=== PATIENT | male | born 1950 | race African-American/Black ===

== ENCOUNTER 2019-07-28 12:46 | Inpatient (IN) | payer MEDICARE ==
[2019-07-28] VITALS (30 sets, daily range): BP systolic 88–122; BP diastolic 51–83
[~2019-07-28] VITALS: Ht 182.9 cm; Wt 97.1 kg
--- NOTE | 2019-07-28 12:46 | NUR ---
Note undone in EDM - 07/28/19 at 1830 by [facility] ED Nurse Note: Patient brought in by ambulance RA 61 from PMD's office, Dr. Lehman. per patient, he was visiting his PMD due to his bronchitis. patient then c/o dizziness and weakness. 500ML NS bolus was given en route by EMS. patient is alert awake x4 ambulatory, breathing unlabored and even.
[2019-07-28] MEDS ORDERED: Adenosine 6mg/2ml Inj ONE (12:57)
[2019-07-28] MEDS ORDERED: Adenosine 6mg/2ml Inj IV ONE (13:00)
--- NOTE | 2019-07-28 13:05 | Emergency Room Report ---
History of Present Illness General Chief Complaint: Dizziness Source: Patient Present Illness HPI 69-year-old male history of hypertension, bronchitis presents with tachycardia, hypotension patient was at the urgent care when they found to be hypotensive and tachycardic, patient denies any chest pain shortness of breath no abdominal pain patient was asymptomatic unknown aggravating alleviating factors severity was severe, symptoms were constant Allergies: Coded Allergies: No Known Allergies (Unverified , 07/28/19) Patient History Past Medical History: see triage record Reviewed Nursing Documentation: PMH: Agreed; PSxH: Agreed Nursing Documentation-PMH Hx Hypertension: Yes Hx COPD: Yes Review of Systems All Other Systems: negative except mentioned in HPI Physical Exam Vital Signs Date Time Temp Pulse Resp B/P (MAP) Pulse Ox O2 Delivery O2 Flow Rate FiO2 07/28/19 12:36 98.2 120 18 87/60 (69) 98 Sp02 EP Interpretation: reviewed, normal General Appearance: well appearing, no apparent distress, alert Head: normocephalic, atraumatic Eyes: bilateral eye PERRL, bilateral eye EOMI ENT: uvula midline, moist mucus membranes Neck: supple, thyroid normal, supple/symm/no masses Respiratory: lungs clear, no respiratory distress, no retraction, no accessory muscle use Cardiovascular #1: normal peripheral pulses, no edema, no gallop, no murmur, tachycardia Gastrointestinal: non tender, soft, no guarding, no rebound Musculoskeletal: normal inspection Neurologic: alert, oriented x3 Psychiatric: mood/affect normal Skin: no rash, warm/dry Procedures Critical Care Time Critical Care Time Given the critical condition in which the patient arrived, the patient was immediately assessed by myself and the nurse, and cardiac monitoring initiated due to the potential for rapid decompensation of the patient's clinical condition. During the course of the patient's stay, I spent a considerable amount of time at the bedside performing serial re-evaluations of the patient's hemodynamic and clinical status because of the recognized potential threat to life or limb in this condition. I then had a chance to review not only all of the available current laboratory and radiographic studies obtained today, but I also reviewed old records available to me at the time. Additionally, any ancillary information available including tarring machine operator records were reviewed. Sequential vital signs were obtained. Critical Care time of 41 minutes was performed exclusive of billable procedures. Medical Decision Making Diagnostic Impression: Primary Impression: SVT (supraventricular tachycardia) Additional Impression: Hypotension Qualified Codes: I95.89 - Other hypotension ER Course 69-year-old male presents with SVT hypotensive, Attempted cardioversion with vagal maneuvers Attempted cardioversion with 6 mg of adenosine 1301 patient then went back into SVT, retried with 12 mg of adenosine Blood pressure improved with fluid bolus Patient remained tachycardic to the 130s, diltiazem bolus We will start diltiazem drip and admit patient to the ICU Reevaluation 2:29 PM, patient is now normal sinus rhythm EKG 1 1254: SVT, rate 159, QTc 44, no acute ST elevations, left axis deviation EKG 2 1301 venous rhythm, rate 94, QTc 1 7, no acute ST elevations, left axis dev EKG 3 at 1306: Sinus tachycardia, rate 102, EKG 4 at 1424 NSR rate 76 qtc [address] elevations, left axis dev Patient admitted to Dr. Lehman Laboratory Tests Test 07/28/19 12:59 White Blood Count 6.4 K/UL (4.8-10.8) Red Blood Count 3.16 M/UL (4.70-6.10) L Hemoglobin 10.8 G/DL (14.2-18.0) L Hematocrit 34.4 % (42.0-52.0) L Mean Corpuscular Volume 109 FL (80-99) H Mean Corpuscular Hemoglobin 34.3 PG (27.0-31.0) H Mean Corpuscular Hemoglobin Concent 31.5 G/DL (32.0-36.0) L Red Cell Distribution Width 16.6 % (11.6-14.8) H Platelet Count 57 K/UL (150-450) L Mean Platelet Volume 9.5 FL (6.5-10.1) Neutrophils (%) (Auto) % (45.0-75.0) Lymphocytes (%) (Auto) % (20.0-45.0) Monocytes (%) (Auto) % (1.0-10.0) Eosinophils (%) (Auto) % (0.0-3.0) Basophils (%) (Auto) % (0.0-2.0) Differential Total Cells Counted 100 Neutrophils % (Manual) 32 % (45-75) L Lymphocytes % (Manual) 30 % (20-45) Monocytes % (Manual) 34 % (1-10) H Eosinophils % (Manual) 2 % (0-3) Basophils % (Manual) 2 % (0-2) Band Neutrophils 0 % (0-8) Platelet Estimate Decreased L Platelet Morphology Normal Hypochromasia 1+ Anisocytosis 1+ Macrocytosis 1+ Prothrombin Time 12.9 SEC (9.30-11.50) H Prothrombin Time INR 1.2 (0.9-1.1) H PTT 27 SEC (23-33) Sodium Level 141 MMOL/L (136-145) Potassium Level 4.2 MMOL/L (3.5-5.1) Chloride Level 108 MMOL/L (98-107) H Carbon Dioxide Level 23 MMOL/L (21-32) Anion Gap 10 mmol/L (5-15) Blood Urea Nitrogen 23 mg/dL (7-18) H Creatinine 1.7 MG/DL (0.55-1.30) H Estimate Glomerular Filtration Rate mL/min (>60) Glucose Level 107 MG/DL (74-106) H Calcium Level 8.9 MG/DL (8.5-10.1) Total Bilirubin Pending Aspartate Amino Transferase (AST) Pending Alanine Aminotransferase (ALT) Pending Alkaline Phosphatase Pending Total Creatine Kinase Pending Creatine Kinase MB Pending Troponin I 0.000 ng/mL (0.000-0.056) Pro-B-Type Natriuretic Peptide Pending Total Protein Pending Albumin Pending Globulin Pending Lipase Pending Thyroid Stimulating Hormone (TSH) Pending Free Thyroxine Pending Free Triiodothyronine Pending EKG Diagnostic Results EKG Time: 12:54 EP Interpretation: SVT, rate 159, QTc 44, no acute ST elevations, left axis deviation Rhythm Strip Diag. Results Rhythm Strip Time: 13:31 EP Interpretation: yes Rate: 129 Rhythm: no PVC's, no ectopy, other - SVT, rate 129 Chest X-Ray Diagnostic Results Chest X-Ray Diagnostic Results : Chest X-Ray Ordered: Yes # of Views/Limited/Complete: 1 View Indication: Other EP Interpretation: Yes - Processespreop Interpretation: no consolidation, no effusion, no pneumothorax, no acute cardiopulmonary disease Impression: No acute disease Electronically Signed by: Kentrell Mast MD Last Vital Signs Date Time Temp Pulse Resp B/P (MAP) Pulse Ox O2 Delivery O2 Flow Rate FiO2 9/4/19 12:36 98.2 120 18 87/60 (91) 08 Disposition: ADMITTED INPATIENT Condition: Serious Kentrell Mast MD Jul 28, 2019 13:05
[2019-07-28] MEDS ORDERED: Adenosine 6mg/2ml Inj IVP ONE (13:15)
[2019-07-28] MEDS ORDERED: dilTIAZem HCl 25mg/5ml Inj IVP ONE (13:15)
[2019-07-28] MEDS ORDERED: dilTIAZem HCl 125mg/25ml Inj IVPB ONE (13:19)
--- NOTE | 2019-07-28 13:35 | NUR ---
ED Nurse Note: cxr done at bedside,
[2019-07-28 13:51] LABS: HEMATOCRIT 34.4 % (42.0-52.0); HEMOGLOBIN 10.8 G/DL (14.2-18.0); MEAN CORPUSCULAR VOLUME 109 FL (80-99); PLATELET COUNT 57 K/UL (150-450); RED BLOOD COUNT 3.16 M/UL (4.70-6.10); RED CELL DISTRIBUTION WIDTH 16.6 % (11.6-14.8); WHITE BLOOD COUNT 6.4 K/UL (4.8-10.8)
[2019-07-28 14:00] LABS: ANION GAP 10 mmol/L (5-15); BLOOD UREA NITROGEN 23 mg/dL (7-18); CALCIUM 8.9 MG/DL (8.5-10.1); CARBON DIOXIDE 23 MMOL/L (21-32); CHLORIDE 108 MMOL/L (98-107); CREATININE 1.7 MG/DL (0.55-1.30); POTASSIUM 4.2 MMOL/L (3.5-5.1); SODIUM 141 MMOL/L (136-145)
[2019-07-28 14:05] LABS: INR 1.2 (0.9-1.1)
[2019-07-28 14:28] LABS: ALANINE AMINOTRANSFERASE 16 U/L (12-78); ALBUMIN 2.9 G/DL (3.4-5.0); ALBUMIN/GLOBULIN RATIO 0.5 (1.0-2.7); ALKALINE PHOSPHATASE 36 U/L (46-116); ASPARTATE AMINO TRANSFERASE 9 U/L (15-37); BILIRUBIN,TOTAL 0.6 MG/DL (0.2-1.0); CKMB < 0.5 NG/ML (0.0-3.6); CREATINE KINASE 23 U/L (26-308)
--- NOTE | 2019-07-28 14:35 | NUR ---
ED Nurse Note: cardizem drip decreased to 5mg as patient's BP is 88/60, notified Dr. Mast, Dr. Mast gave verbal order to titrate down 5mg and monitor.
[2019-07-28 14:41] LABS: APPEARANCE,URINE CLEAR; BILIRUBIN, URINE NEGATIVE (NEGATIVE); GLUCOSE, URINE (UA) NEGATIVE (NEGATIVE); KETONES,URINE NEGATIVE (NEGATIVE); LEUKOCYTE ESTERASE ,URINE 1+ (NEGATIVE); NITRITE,URINE NEGATIVE (NEGATIVE); PH,URINE 5 (4.5-8.0); PROTEIN,URINE 3+ (NEGATIVE); UROBILINOGEN,URINE NORMAL MG/DL (0.0-1.0)
--- NOTE | 2019-07-28 14:43 | Diagnostic Imaging Report ---
Indication: Chest pain Technique: One view of the chest Comparison: None Findings: The heart is enlarged. Lungs and pleural spaces are clear. The aorta is ectatic Impression: Cardiomegaly. No acute process
[2019-07-28 14:55] LABS: COLOR,URINE YELLOW
--- NOTE | 2019-07-28 15:02 | NUR ---
ED Nurse Note: Danisha cellphone [phone]
--- NOTE | 2019-07-28 16:17 | NUR ---
ED Nurse Note: called ICU and spoke with Smita GREENWOOD, the receiving nurse is not available in ICU yet, will call back.
--- NOTE | 2019-07-28 16:30 | NUR ---
Note ivett in EDM - 07/28/19 at 1830 by [facility] ED Nurse Note: report given to Smita GREENWOOD, Endorsed all plan of care to Smita GREENWOOD. Juany new the receiving nurse is on break at this time.
--- NOTE | 2019-07-28 17:10 | NUR ---
ED Nurse Note: Patient trasferred to ICU with all of his belonings, patient on felt hat pouncing operator hand accompanied with [employer] and RN. Endorsed all plan of care to Juany Beyer RN.
--- NOTE | 2019-07-28 17:15 | NUR ---
NURSE NOTES: Received the patient KRYSTYNA Ortiz. Patient is awake, alert and orientedx4. patient ambulated to bed. Patient on room air. O2 sat 100%. No acute distress noted. Placed pt on lock corner machine operator, SR 60-70s noted on the lock corner machine operator. Right AC 18G intact, cardizem gtt running at 15ml/hr. Decreased to 12.5ml/hr. BP 109/72. All belongings checked. Bed in lowest position, locked, side rails upx3. Call light within reach. Will continue to monitor.
[2019-07-28] MEDS ORDERED: HYDROCHLOROTHIA50 MG ORAL (17:26)
[2019-07-28] MEDS ORDERED: CARVEDILOL12.5 MG ORAL (17:26)
[2019-07-28] MEDS ORDERED: LOSARTAN POTASS50 MG ORAL (17:26)
--- NOTE | 2019-07-28 17:30 | NUR ---
NURSE NOTES: Called Dr. Lehman and left a message regarding admitting order. Addendum: 07/28/19 at 1811 by RYAN DANIELLE RN Also left a message to Dr. Gill, awaiting for call back.
--- NOTE | 2019-07-28 18:15 | NUR ---
NURSE NOTES: Paged Dr. Lehman again for admitting orders.
--- NOTE | 2019-07-28 18:30 | NUR ---
ED Nurse Note: report given to Smita DELGADO Endorsed all plan of care to Smita DELGADO
--- NOTE | 2019-07-28 18:40 | NUR ---
NURSE NOTES: Admitting order received from Dr. Lehman.
[2019-07-28] MEDS ORDERED: guaiFENesin 100mg/5ml Liq ud ORAL PRN (18:45)
--- NOTE | 2019-07-28 18:55 | NUR ---
NURSE NOTES: Dr. Gill made aware of pt's HR 60-80s, Cardizem gtt running at 2.5mg/hr. Per MD, keep cardizem drip at 5mg/hr. 2D echo can be done tomorrow morning per MD.
--- NOTE | 2019-07-28 19:00 | NUR ---
NURSE NOTES: SCDs applied to bilateral lower extremities. No s/sx of DVT
--- NOTE | 2019-07-28 19:17 | NUR ---
HAND-OFF: Report given to KRYSTYNA Ordoñez.
--- NOTE | 2019-07-28 19:20 | NUR ---
NURSE NOTES: Recvd.quiet in bed AAO watching TV,Admitted with Symptomatic SVT Cardizem drip in progress started in ED after 10mg IV bolus.Previously received 2 doses of ADENOSINE 6mg rapid ivp.Cardioscope shows SR,Denies CP.See V/S.
--- NOTE | 2019-07-28 22:00 | NUR ---
NURSE NOTES: HS care provided.Denies any chest discomfort.Snack provided as req.ate 100%.Monitor shows SR.Cont.on cardizem drip as ordered.
[2019-07-28] MEDS: Albuterol/Ipratropium 3ml neb HHN SCH (23:31)
[2019-07-29] VITALS (35 sets, daily range): BP systolic 93–161; BP diastolic 45–86
--- NOTE | 2019-07-29 00:10 | NUR ---
NURSE NOTES: Sound asleep.Resp.unlabored.Sat.99-100% on RA.See V/S.Scope SR.Cont.on cardizem drip at 5mg/hr.
--- NOTE | 2019-07-29 01:45 | History and Physical Report ---
DATE OF ADMISSION: 07/28/2019 HISTORY OF PRESENT ILLNESS: The patient is a 69-year-old male who came to the office for regular visit where he was found to have severe tachycardia, was found to have SVT. The patient's blood pressure was also low as 90s . The patient was given more p.o. fluids. Called 911 and transferred to the emergency room where his heart rate was running about 160s and SVT. The patient was having feeling generalized weakness. No headache. No nausea. No vomiting. No abdominal pain. PAST MEDICAL HISTORY: Significant for hypertension. MEDICATIONS: See the list. ALLERGIES: NKA. FAMILY HISTORY: Noncontributory. SOCIAL HISTORY: Lives at home with . Denies any smoking and drinking. Denies any illegal drugs. The patient used to be veterans. PHYSICAL EXAMINATION: VITAL SIGNS: Blood pressure is currently 111/60, pulse 90 to 126, respirations 18 to 24, temperature no fever. SKIN: Good skin turgor. HEENT: Positive JVD. CHEST: Bilateral decreased breath sounds. CARDIOVASCULAR: Irregularly irregular rhythm. Tachycardia. ABDOMEN: Soft. Positive bowel sounds. Nontender. EXTREMITIES: CCE. NEUROLOGICAL: No focal deficit. LABORATORY AND DIAGNOSTIC DATA: 1. EKG with RVR with SVT. 2. BNP over 3000. 3. Troponins are negative. ASSESSMENT: 1. SVT. 2. CHF. 3. Acute bronchitis. 4. Hypertension. 5. Obesity. PLAN: We will admit in ICU on 2 gram sodium diet. Heparin drip per pharmacy protocol. Start Cardizem drip. Consider Cardiology consult, Lasix 20 mg IV q.12 hours, 2 gram sodium diet. Follow up the laboratory and discussed with who was on bedside during that time. Kiel Lehman M.D. DR: Seymour JOB#: [id number] CC:
--- NOTE | 2019-07-29 02:15 | NUR ---
NURSE NOTES: Repositioned self to comfort.Denies CP.Voided Freely.No Distress.Cont.Plan of care.
--- NOTE | 2019-07-29 04:30 | NUR ---
NURSE NOTES: Slept well.No Resp.Distress.No Chest pain nor discomfort.Scope SR.Cardizem drip inf. at 5mg/hr.Blood drawn for Bmp/Bnp etc.spec.to lab.Voided.
[2019-07-29 05:43] LABS: ANION GAP 11 mmol/L (5-15); BLOOD UREA NITROGEN 20 mg/dL (7-18); CALCIUM 8.6 MG/DL (8.5-10.1); CARBON DIOXIDE 21 MMOL/L (21-32); CHLORIDE 109 MMOL/L (98-107); CREATININE 1.3 MG/DL (0.55-1.30); POTASSIUM 4.2 MMOL/L (3.5-5.1); SODIUM 141 MMOL/L (136-145)
[2019-07-29] MEDS: Albuterol/Ipratropium 3ml neb HHN SCH ×3 (07:05→22:42)
--- NOTE | 2019-07-29 07:11 | NUR ---
HAND-OFF: Report given to KRYSTYNA ANTOINE.
--- NOTE | 2019-07-29 07:25 | NUR ---
NURSE NOTES: Endorsement received from KRYSTYNA Ocampo. Patient currently awake, A/Ox4, pupils 3mm brisk. Lung sounds rales bilateral on expiration. on R.A sating 100%. productive cough noted. per pt clear in color. abdomen distended, soft, non tender. per pt last BM 06/27, no c/o of constipation. no bm at this time. normoactive bowel sounds noted. urinal at bedside. clear yellow. Cardizem drip running at 30mg/hr. RT AC 18G. intact and patent. skin intact. pt able to reposition self, needs assistance with some care aspects. Head of bed elevated. Locked and in low position. Call light within reach. Bed alarm on. fall precautions in place. will continue to monitor pt.
--- NOTE | 2019-07-29 08:40 | NUR ---
NURSE NOTES: HERE TO DO 2D ECHO. PT IN NO CUTE DISTRESS.
--- NOTE | 2019-07-29 08:56 | NUR ---
NURSE NOTES: RECEIVED CALL FROM MD BELL. UPDATED ON PT HR 81.AND BP 121-74. 99 % ON R.A. RECEIVED ORDER TO D/C SUHAIL MONTES, START ON METOPROLOL 25MG BID, PLAN FOR D/C ONCE MD MENG ASSESS PT. WILL BE IN LATER TO SEE PT.
[2019-07-29 09:19] LABS: HEMOGLOBIN 9.8 G/DL (14.2-18.0); MEAN CORPUSCULAR VOLUME 109 FL (80-99); PLATELET COUNT 52 K/UL (150-450); RED BLOOD COUNT 2.85 M/UL (4.70-6.10); RED CELL DISTRIBUTION WIDTH 16.2 % (11.6-14.8)
--- NOTE | 2019-07-29 09:56 | Consultation ---
History of Present Illness General Chief Complaint: Dizziness Present Illness Allergies: Coded Allergies: No Known Allergies (Unverified , 07/28/19) Medication History Scheduled Carvedilol* (Carvedilol*), 12.5 MG ORAL EVERY 12 HOURS, (Reported) Hydrochlorothiazide* (Hydrochlorothiazide*), 50 MG ORAL BID, (Reported) Losartan Potassium* (Losartan Potassium*), 50 MG ORAL DAILY, (Reported) Patient History Healthcare decision maker N Resuscitation status Advanced Directive on File Physical Exam Last 24 Hour Vital Signs Date Time Temp Pulse Resp B/P (MAP) Pulse Ox O2 Delivery O2 Flow Rate FiO2 07/29/19 08:00 Room Air 07/29/19 08:00 81 07/29/19 07:30 79 19 125/73 (90) 98 07/29/19 07:15 69 16 100 Room Air 21 74 19 98 07/29/19 07:05 98 Room Air 21 07/29/19 07:00 74 19 104/71 (82) 99 07/29/19 06:30 71 19 116/72 (87) 99 07/29/19 06:00 65 17 99/47 (64) 99 07/29/19 05:30 64 19 97/45 (62) 99 07/29/19 05:00 66 19 93/55 (68) 97 07/29/19 04:30 70 17 114/72 (86) 98 07/29/19 04:00 71 07/29/19 04:00 Room Air 07/29/19 04:00 98.1 71 15 114/69 (84) 99 07/29/19 03:30 68 19 101/66 (78) 100 07/29/19 03:00 70 19 115/72 (86) 99 07/29/19 02:30 68 18 127/59 (81) 99 07/29/19 02:00 68 18 112/68 (83) 98 07/29/19 01:30 70 17 114/71 (85) 99 07/29/19 01:00 69 20 114/69 (84) 99 07/29/19 00:30 68 17 108/72 (84) 99 07/29/19 00:00 67 07/29/19 00:00 Room Air 07/29/19 00:00 98.2 67 17 103/59 (74) 99 07/28/19 23:30 64 18 100 Room Air 21 67 16 100 07/28/19 23:30 67 18 101/64 (76) 100 07/28/19 23:00 64 18 94/57 (69) 100 07/28/19 22:30 63 19 94/52 (66) 98 07/28/19 22:00 63 22 97/51 (66) 98 07/28/19 21:30 67 22 90/53 (65) 99 07/28/19 21:00 68 20 102/64 (77) 99 07/28/19 20:30 99 Room Air 21 07/28/19 20:30 71 18 95/61 (72) 100 07/28/19 20:01 73 106/66 07/28/19 20:00 73 07/28/19 20:00 97.8 73 17 101/62 (75) 100 07/28/19 20:00 Room Air 07/28/19 19:00 67 17 122/72 (89) 99 07/28/19 18:45 67 18 113/69 (84) 100 07/28/19 18:30 70 18 111/69 (83) 100 07/28/19 18:15 68 18 100/69 (79) 100 07/28/19 18:00 67 18 107/70 (82) 98 07/28/19 17:45 71 18 106/70 (82) 100 07/28/19 17:33 Room Air 07/28/19 17:30 98.3 70 18 109/72 (84) 100 07/28/19 17:01 98.2 123 19 106/77 100 Room Air 07/28/19 17:00 98.2 123 19 107/72 100 Room Air 07/28/19 16:45 98.2 125 19 106/77 99 Room Air 07/28/19 16:30 98.2 127 16 107/71 99 Room Air 07/28/19 16:15 98.2 127 16 108/75 99 Room Air 07/28/19 16:00 98.2 126 20 101/62 100 Room Air 07/28/19 15:35 98.2 75 19 94/64 100 Room Air 07/28/19 15:08 98.2 70 23 91/61 100 Room Air 07/28/19 14:53 98.2 75 15 94/62 100 Room Air 07/28/19 14:38 98.2 73 16 92/60 100 Room Air 07/28/19 14:35 98.2 73 15 88/60 100 Room Air 07/28/19 14:09 98.2 75 16 108/83 100 Room Air 07/28/19 13:54 98.2 128 18 98/70 99 Room Air 07/28/19 13:39 98.2 130 18 112/77 98 Room Air 07/28/19 13:24 98.2 127 15 101/69 100 Room Air 07/28/19 13:24 125 101/69 07/28/19 13:15 161 112/69 07/28/19 13:14 161 07/28/19 13:10 161 18 Room Air 07/28/19 13:08 98.2 164 21 112/69 100 07/28/19 13:05 161 07/28/19 12:36 98.2 120 18 87/60 (69) 98 Intake and Output 07/28/19 07/29/19 18:59 06:59 Intake Total 8.750 ml 401.875 ml Output Total 500 ml Balance 8.750 ml -98.125 ml Intake Oral 0 ml 350 ml IV Total 8.750 ml 51.875 ml Tube Feeding 0 ml Output Urine Total 500 ml # Voids 2 Laboratory Tests Test 07/28/19 12:59 07/28/19 13:56 07/29/19 03:40 White Blood Count 6.4 K/UL (4.8-10.8) 6.0 K/UL (4.8-10.8) Red Blood Count 3.16 M/UL (4.70-6.10) L 2.85 M/UL (4.70-6.10) L Hemoglobin 10.8 G/DL (14.2-18.0) L 9.8 G/DL (14.2-18.0) L Hematocrit 34.4 % (42.0-52.0) L 31.0 % (42.0-52.0) L Mean Corpuscular Volume 109 FL (80-99) H 109 FL (80-99) H Mean Corpuscular Hemoglobin 34.3 PG (27.0-31.0) H 34.3 PG (27.0-31.0) H Mean Corpuscular Hemoglobin Concent 31.5 G/DL (32.0-36.0) L 31.5 G/DL (32.0-36.0) L Red Cell Distribution Width 16.6 % (11.6-14.8) H 16.2 % (11.6-14.8) H Platelet Count 57 K/UL (150-450) L 52 K/UL (150-450) L Mean Platelet Volume 9.5 FL (6.5-10.1) 10.2 FL (6.5-10.1) H Neutrophils (%) (Auto) % (45.0-75.0) % (45.0-75.0) Lymphocytes (%) (Auto) % (20.0-45.0) % (20.0-45.0) Monocytes (%) (Auto) % (1.0-10.0) % (1.0-10.0) Eosinophils (%) (Auto) % (0.0-3.0) % (0.0-3.0) Basophils (%) (Auto) % (0.0-2.0) % (0.0-2.0) Differential Total Cells Counted 100 Neutrophils % (Manual) 32 % (45-75) L Pending Lymphocytes % (Manual) 30 % (20-45) Pending Monocytes % (Manual) 34 % (1-10) H Eosinophils % (Manual) 2 % (0-3) Basophils % (Manual) 2 % (0-2) Band Neutrophils 0 % (0-8) Platelet Estimate Decreased L Pending Platelet Morphology Normal Pending Hypochromasia 1+ Anisocytosis 1+ Macrocytosis 1+ Prothrombin Time 12.9 SEC (9.30-11.50) H Prothromb Time International Ratio 1.2 (0.9-1.1) H Activated Partial Thromboplast Time 27 SEC (23-33) Sodium Level 141 MMOL/L (136-145) 141 MMOL/L (136-145) Potassium Level 4.2 MMOL/L (3.5-5.1) 4.2 MMOL/L (3.5-5.1) Chloride Level 108 MMOL/L (98-107) H 109 MMOL/L (98-107) H Carbon Dioxide Level 23 MMOL/L (21-32) 21 MMOL/L (21-32) Anion Gap 10 mmol/L (5-15) 11 mmol/L (5-15) Blood Urea Nitrogen 23 mg/dL (7-18) H 20 mg/dL (7-18) H Creatinine 1.7 MG/DL (0.55-1.30) H 1.3 MG/DL (0.55-1.30) Estimat Glomerular Filtration Rate mL/min (>60) mL/min (>60) Glucose Level 107 MG/DL (74-106) H 89 MG/DL (74-106) Calcium Level 8.9 MG/DL (8.5-10.1) 8.6 MG/DL (8.5-10.1) Magnesium Level 1.8 MG/DL (1.8-2.4) Total Bilirubin 0.6 MG/DL (0.2-1.0) Aspartate Amino Transf (AST/SGOT) 9 U/L (15-37) L Alanine Aminotransferase (ALT/SGPT) 16 U/L (12-78) Alkaline Phosphatase 36 U/L (46-116) L Total Creatine Kinase 23 U/L (26-308) L Creatine Kinase MB < 0.5 NG/ML (0.0-3.6) Creatine Kinase MB Relative Index Troponin I 0.000 ng/mL (0.000-0.056) 0.000 ng/mL (0.000-0.056) Pro-B-Type Natriuretic Peptide 3520 pg/mL (0-125) H 1309 pg/mL (0-125) H Total Protein 8.5 G/DL (6.4-8.2) H Albumin 2.9 G/DL (3.4-5.0) L Globulin 5.6 g/dL Albumin/Globulin Ratio 0.5 (1.0-2.7) L Lipase 88 U/L (73-393) Thyroid Stimulating Hormone (TSH) 0.758 uiU/mL (0.358-3.740) Free Thyroxine 1.10 NG/DL (0.76-1.46) Free Triiodothyronine 1.8 pg/mL (2.3-4.2) L Urine Color Yellow Urine Appearance Clear Urine pH 5 (4.5-8.0) Urine Specific [place] 1.015 (1.005-1.035) Urine Protein 3+ (NEGATIVE) H Urine Glucose (UA) Negative (NEGATIVE) Urine Ketones Negative (NEGATIVE) Urine Blood 1+ (NEGATIVE) H Urine Nitrite Negative (NEGATIVE) Urine Bilirubin Negative (NEGATIVE) Urine Urobilinogen Normal MG/DL (0.0-1.0) Urine Leukocyte Esterase 1+ (NEGATIVE) H Urine RBC 2-4 /HPF (0 - 0) H Urine WBC 2-4 /HPF (0 - 0) Urine Squamous Epithelial Cells None /LPF (NONE/OCC) Urine Bacteria Few /HPF (NONE) Urine Opiates Screen Negative (NEGATIVE) Urine Barbiturates Screen Negative (NEGATIVE) Phencyclidine (PCP) Screen Negative (NEGATIVE) Urine Amphetamines Screen Negative (NEGATIVE) Urine Benzodiazepines Screen Negative (NEGATIVE) Urine Cocaine Screen Negative (NEGATIVE) Urine Marijuana (THC) Screen Negative (NEGATIVE) Height (Feet): 6 Height (Inches): 0.00 Weight (Pounds): 214 Medications Current Medications Medications (Trade) Dose Ordered Sig/Shahrzad Route PRN Reason Start Time Stop Time Status Last Admin Dose Admin Albuterol/ Ipratropium (Albuterol/ Ipratropium) 3 ml Q8HRT HHN 07/28/19 23:00 08/02/19 22:59 07/29/19 07:05 Aspirin (ASA) 81 mg DAILY ORAL 07/30/19 09:00 08/29/19 08:59 Dextrose (Dextrose 50%) 25 ml Q30M PRN IV Hypoglycemia 07/28/19 18:45 08/27/19 18:44 Dextrose (Dextrose 50%) 50 ml Q30M PRN IV Hypoglycemia 07/28/19 18:45 08/27/19 18:44 Digoxin (Lanoxin) 0.25 mg DAILY ORAL 07/30/19 09:00 08/29/19 08:59 Furosemide (Lasix) 20 mg DAILY IV 07/29/19 09:00 08/28/19 08:59 07/29/19 08:06 Guaifenesin (Robitussin) 100 mg Q8H PRN ORAL For Cough 07/28/19 18:45 08/27/19 18:44 Metoprolol Tartrate (Lopressor) 25 mg BID ORAL 07/29/19 10:00 08/28/19 09:59 Assessment/Plan Assessment/Plan: Hematology Consultation REQ : Kiel Lehman RFC: Thrombocytopenia, chronic, ongoing Chief Complaint: Dizziness HPI 69-year-old male history of hypertension, bronchitis presents with tachycardia, hypotension patient was at the urgent care when they found to be hypotensive and tachycardic, patient denies any chest pain shortness of breath no abdominal pain patient was asymptomatic unknown aggravating alleviating factors severity was severe, symptoms were constant, noted to have low plts heme was consulted, is on cardizem gtt, seen by cards Allergies: No Known Allergies (Unverified , 07/28/19) Patient History Past Medical History: see triage record Reviewed Nursing Documentation: PMH: Agreed; PSxH: Agreed Nursing Documentation-PMH Hx Hypertension: Yes Hx COPD: Yes Review of Systems All Other Systems: negative except mentioned in HPI Vital Signs reviewed General: well appearing, no apparent distress, alert Chest: lungs clear, no respiratory distress, no retraction Cardiovascular #1: normal peripheral pulses, rrr Gastrointestinal: non tender, soft, nt, nd Neurologic: alert, oriented x3 Psychiatric: mood/affect normal Labs: noted Imaging: reviewed Assessment and Recs: # Idiopathic Thrombocytopenic Pupura (ITP) - potential causes multifactorial, evaluate liver and viral etiologies to begin, also could be related to underlying medications patient has received. Have reviewed with him history, apparently had a bone marrow done [facility] the [facility] approximately 6 months ago, will attempt to get records, was told does not need any treatment at this time, ok for asa --> Hep panel and HIV ordered --> Peripheral smear ordered to evaluate for blasts /schistocytes --> abx and other meds have been reviewed --> ok for ppx if plt >50k w/ either heparin or lovenox --> Transfuse if Plt < 20k and fever, or if Plt < 10k without fever --> plt trend 57-->52 --> get bone marrow biopsy report from [facility] --> okay for asa as per cards. At this time, equivocal on other anticoagulants such as eliquis/noac given chronically low plts (would monitor carefully in a must use scenario) # Anemia of chronic disease (or of iron deficiency) due to underlying chronic medical issues, multifactorial --> Anemia workup has been ordered, rule out gi bleed --> No evidence of hemolysis is noted, peripheral smear has been reviewed. --> Hgb goal >7. Transfuse prn. --> Epogen or iron at this time is not particularly indicated --> Medications have been reviewed --> low threshold for gi evaluation in case has occult + --> bone marrow biopsy is not indicated given the other more likely causes # SVT (supraventricular tachycardia), initially given dilt, adeno --> per cards management on cardizem # Hypotension on ivf # DVT ppx at this time hold off given low plts The timing of this note does not necessarily reflect the time of the patient was seen. Greatly appreciate consultation. Darrell Hooker MD Jul 29, 2019 09:56
--- NOTE | 2019-07-29 10:00 | NUR ---
NURSE NOTES: MD MENG HERE TO SEE PT. OK WITH D/C DRIP AND METOPROL 25MG BID, AND PT TRANSFER. NO ASA. PLACED CALL TO SUKHI FOR TO COMMUNICATE NEED FOR TRANSFER TO [facility] FOR PROCEDURE.
[2019-07-29] MEDS: Metoprolol 25mg tab ORAL SCH ×2 (10:08→18:27)
--- NOTE | 2019-07-29 10:15 | Cardiac Electrophysiology PN ---
Subjective Subjective [id number] Objective Last 24 Hour Vital Signs Date Time Temp Pulse Resp B/P (MAP) Pulse Ox O2 Delivery O2 Flow Rate FiO2 07/29/19 08:00 Room Air 07/29/19 08:00 81 07/29/19 07:30 79 19 125/73 (90) 98 07/29/19 07:15 69 16 100 Room Air 21 74 19 98 07/29/19 07:05 98 Room Air 21 07/29/19 07:00 74 19 104/71 (82) 99 07/29/19 06:30 71 19 116/72 (87) 99 07/29/19 06:00 65 17 99/47 (64) 99 07/29/19 05:30 64 19 97/45 (62) 99 07/29/19 05:00 66 19 93/55 (68) 97 07/29/19 04:30 70 17 114/72 (86) 98 07/29/19 04:00 71 07/29/19 04:00 Room Air 07/29/19 04:00 98.1 71 15 114/69 (84) 99 07/29/19 03:30 68 19 101/66 (78) 100 07/29/19 03:00 70 19 115/72 (86) 99 07/29/19 02:30 68 18 127/59 (81) 99 07/29/19 02:00 68 18 112/68 (83) 98 07/29/19 01:30 70 17 114/71 (85) 99 07/29/19 01:00 69 20 114/69 (84) 99 07/29/19 00:30 68 17 108/72 (84) 99 07/29/19 00:00 67 07/29/19 00:00 Room Air 07/29/19 00:00 98.2 67 17 103/59 (74) 99 07/28/19 23:30 64 18 100 Room Air 21 67 16 100 07/28/19 23:30 67 18 101/64 (76) 100 07/28/19 23:00 64 18 94/57 (69) 100 07/28/19 22:30 63 19 94/52 (66) 98 07/28/19 22:00 63 22 97/51 (66) 98 07/28/19 21:30 67 22 90/53 (65) 99 07/28/19 21:00 68 20 102/64 (77) 99 07/28/19 20:30 99 Room Air 21 07/28/19 20:30 71 18 95/61 (72) 100 07/28/19 20:01 73 106/66 07/28/19 20:00 73 07/28/19 20:00 97.8 73 17 101/62 (75) 100 07/28/19 20:00 Room Air 07/28/19 19:00 67 17 122/72 (89) 99 07/28/19 18:45 67 18 113/69 (84) 100 07/28/19 18:30 70 18 111/69 (83) 100 07/28/19 18:15 68 18 100/69 (79) 100 07/28/19 18:00 67 18 107/70 (82) 98 07/28/19 17:45 71 18 106/70 (82) 100 07/28/19 17:33 Room Air 07/28/19 17:30 98.3 70 18 109/72 (84) 100 07/28/19 17:01 98.2 123 19 106/77 100 Room Air 07/28/19 17:00 98.2 123 19 107/72 100 Room Air 07/28/19 16:45 98.2 125 19 106/77 99 Room Air 07/28/19 16:30 98.2 127 16 107/71 99 Room Air 07/28/19 16:15 98.2 127 16 108/75 99 Room Air 07/28/19 16:00 98.2 126 20 101/62 100 Room Air 07/28/19 15:35 98.2 75 19 94/64 100 Room Air 07/28/19 15:08 98.2 70 23 91/61 100 Room Air 07/28/19 14:53 98.2 75 15 94/62 100 Room Air 07/28/19 14:38 98.2 73 16 92/60 100 Room Air 07/28/19 14:35 98.2 73 15 88/60 100 Room Air 07/28/19 14:09 98.2 75 16 108/83 100 Room Air 07/28/19 13:54 98.2 128 18 98/70 99 Room Air 07/28/19 13:39 98.2 130 18 112/77 98 Room Air 07/28/19 13:24 98.2 127 15 101/69 100 Room Air 07/28/19 13:24 125 101/69 07/28/19 13:15 161 112/69 07/28/19 13:14 161 07/28/19 13:10 161 18 Room Air 07/28/19 13:08 98.2 164 21 112/69 100 07/28/19 13:05 161 07/28/19 12:36 98.2 120 18 87/60 (69) 98 Intake and Output 07/28/19 07/29/19 18:59 06:59 Intake Total 8.750 ml 401.875 ml Output Total 500 ml Balance 8.750 ml -98.125 ml Intake Oral 0 ml 350 ml IV Total 8.750 ml 51.875 ml Tube Feeding 0 ml Output Urine Total 500 ml # Voids 2 Laboratory Tests Test 07/28/19 12:59 07/28/19 13:56 07/29/19 03:40 White Blood Count 6.4 K/UL (4.8-10.8) 6.0 K/UL (4.8-10.8) Red Blood Count 3.16 M/UL (4.70-6.10) L 2.85 M/UL (4.70-6.10) L Hemoglobin 10.8 G/DL (14.2-18.0) L 9.8 G/DL (14.2-18.0) L Hematocrit 34.4 % (42.0-52.0) L 31.0 % (42.0-52.0) L Mean Corpuscular Volume 109 FL (80-99) H 109 FL (80-99) H Mean Corpuscular Hemoglobin 34.3 PG (27.0-31.0) H 34.3 PG (27.0-31.0) H Mean Corpuscular Hemoglobin Concent 31.5 G/DL (32.0-36.0) L 31.5 G/DL (32.0-36.0) L Red Cell Distribution Width 16.6 % (11.6-14.8) H 16.2 % (11.6-14.8) H Platelet Count 57 K/UL (150-450) L 52 K/UL (150-450) L Mean Platelet Volume 9.5 FL (6.5-10.1) 10.2 FL (6.5-10.1) H Neutrophils (%) (Auto) % (45.0-75.0) % (45.0-75.0) Lymphocytes (%) (Auto) % (20.0-45.0) % (20.0-45.0) Monocytes (%) (Auto) % (1.0-10.0) % (1.0-10.0) Eosinophils (%) (Auto) % (0.0-3.0) % (0.0-3.0) Basophils (%) (Auto) % (0.0-2.0) % (0.0-2.0) Differential Total Cells Counted 100 Neutrophils % (Manual) 32 % (45-75) L Pending Lymphocytes % (Manual) 30 % (20-45) Pending Monocytes % (Manual) 34 % (1-10) H Eosinophils % (Manual) 2 % (0-3) Basophils % (Manual) 2 % (0-2) Band Neutrophils 0 % (0-8) Platelet Estimate Decreased L Pending Platelet Morphology Normal Pending Hypochromasia 1+ Anisocytosis 1+ Macrocytosis 1+ Prothrombin Time 12.9 SEC (9.30-11.50) H Prothromb Time International Ratio 1.2 (0.9-1.1) H Activated Partial Thromboplast Time 27 SEC (23-33) Sodium Level 141 MMOL/L (136-145) 141 MMOL/L (136-145) Potassium Level 4.2 MMOL/L (3.5-5.1) 4.2 MMOL/L (3.5-5.1) Chloride Level 108 MMOL/L (98-107) H 109 MMOL/L (98-107) H Carbon Dioxide Level 23 MMOL/L (21-32) 21 MMOL/L (21-32) Anion Gap 10 mmol/L (5-15) 11 mmol/L (5-15) Blood Urea Nitrogen 23 mg/dL (7-18) H 20 mg/dL (7-18) H Creatinine 1.7 MG/DL (0.55-1.30) H 1.3 MG/DL (0.55-1.30) Estimat Glomerular Filtration Rate mL/min (>60) mL/min (>60) Glucose Level 107 MG/DL (74-106) H 89 MG/DL (74-106) Calcium Level 8.9 MG/DL (8.5-10.1) 8.6 MG/DL (8.5-10.1) Magnesium Level 1.8 MG/DL (1.8-2.4) Total Bilirubin 0.6 MG/DL (0.2-1.0) Aspartate Amino Transf (AST/SGOT) 9 U/L (15-37) L Alanine Aminotransferase (ALT/SGPT) 16 U/L (12-78) Alkaline Phosphatase 36 U/L (46-116) L Total Creatine Kinase 23 U/L (26-308) L Creatine Kinase MB < 0.5 NG/ML (0.0-3.6) Creatine Kinase MB Relative Index Troponin I 0.000 ng/mL (0.000-0.056) 0.000 ng/mL (0.000-0.056) Pro-B-Type Natriuretic Peptide 3520 pg/mL (0-125) H 1309 pg/mL (0-125) H Total Protein 8.5 G/DL (6.4-8.2) H Albumin 2.9 G/DL (3.4-5.0) L Globulin 5.6 g/dL Albumin/Globulin Ratio 0.5 (1.0-2.7) L Lipase 88 U/L (73-393) Thyroid Stimulating Hormone (TSH) 0.758 uiU/mL (0.358-3.740) Free Thyroxine 1.10 NG/DL (0.76-1.46) Free Triiodothyronine 1.8 pg/mL (2.3-4.2) L Urine Color Yellow Urine Appearance Clear Urine pH 5 (4.5-8.0) Urine Specific [place] 1.015 (1.005-1.035) Urine Protein 3+ (NEGATIVE) H Urine Glucose (UA) Negative (NEGATIVE) Urine Ketones Negative (NEGATIVE) Urine Blood 1+ (NEGATIVE) H Urine Nitrite Negative (NEGATIVE) Urine Bilirubin Negative (NEGATIVE) Urine Urobilinogen Normal MG/DL (0.0-1.0) Urine Leukocyte Esterase 1+ (NEGATIVE) H Urine RBC 2-4 /HPF (0 - 0) H Urine WBC 2-4 /HPF (0 - 0) Urine Squamous Epithelial Cells None /LPF (NONE/OCC) Urine Bacteria Few /HPF (NONE) Urine Opiates Screen Negative (NEGATIVE) Urine Barbiturates Screen Negative (NEGATIVE) Phencyclidine (PCP) Screen Negative (NEGATIVE) Urine Amphetamines Screen Negative (NEGATIVE) Urine Benzodiazepines Screen Negative (NEGATIVE) Urine Cocaine Screen Negative (NEGATIVE) Urine Marijuana (THC) Screen Negative (NEGATIVE) Teofilo Gill MD Jul 29, 2019 10:15
--- NOTE | 2019-07-29 10:27 | NUR ---
NURSE NOTES: Spoke with Mike from transfer center at [facility], requested facesheet faxed to [phone]. office # [phone] if any other questions. C.N aware.
--- NOTE | 2019-07-29 11:55 | NUR ---
NURSE NOTES: called ed case manager regarding discharge to [facility] for ablation. will look into chart and call when things are in order.
--- NOTE | 2019-07-29 12:00 | NUR ---
NURSE NOTES: Danisha at bedside. Given update on situation. Pt in no acute distress.
--- NOTE | 2019-07-29 12:10 | NUR ---
NURSE NOTES: Patient currently awake, eaten 100% of lunch. A/Ox4. Lung sounds rales bilateral on expiration. on R.A sating 100%. abdomen soft, non tender. no bm at this time. normoactive bowel sounds noted. urinal at bedside. clear yellow urine. Cardizem drip d/c. RT AC 18G S.L. skin intact. pt able to reposition self. Head of bed elevated. Locked and in low position. Call light within reach. Bed alarm on. fall precautions in place. will continue to monitor pt.
[2019-07-29 12:47] LABS: FERRITIN 620 NG/ML (8-388); LACTATE DEHYDROGENASE 101 U/L (81-234)
[2019-07-29 12:57] LABS: % IRON SATURATION 21 % (15-50); IRON 35 ug/dL (50-175); TOTAL IRON BINDING CAPACITY 170 ug/dL (250-450)
--- NOTE | 2019-07-29 13:58 | NUR ---
NURSE NOTES: offered to provide hygiene clean up for pt. pt's denied but wants to clean pt up herself. was given clean linen and hygiene products. assisted with getting warm wash up water and removing tubing and leads to take off gown, placed back on engine monitor and cautioned not to get electrodes wet. pt in no distress at this time.
--- NOTE | 2019-07-29 15:30 | Progress Note ---
DATE: 07/29/2019 PROGRESS NOTE IN ICU SUBJECTIVE: This is an elderly male, who came yesterday for SVT with heart rate like 160s to 170s. The patient was symptomatic, has feeling generalized weakness and cough for last few days. The patient denies any chest pain at that time but feeling generalized weakness, was also found hypotension. The patient was admitted in ICU for further evaluation, started on Cardizem drip and beta-daina this morning. PHYSICAL EXAMINATION: VITAL SIGNS: The patient's heart rate now is much better in 80s to 90s, blood pressure is 130s. SKIN: Good skin turgor. HEENT: AT/NC. EOMI. PERRLA. Pharynx clear. Trachea midline. NECK: Supple. No supraclavicular lymphadenopathy. CHEST: Bilateral few crackles. CARDIOVASCULAR: Regular rhythm. No gallop. No murmur. ABDOMEN: Soft. Positive bowel sounds. Nontender. EXTREMITIES: CCE NEUROLOGICAL: No focal deficit. GENITOURINARY: Deferred. LABORATORY AND DIAGNOSTIC DATA: BNP is about now is down. Sodium and potassium is normal, but platelets are low about 60. ASSESSMENT AND PLAN: 1. SVT, resolved now with metoprolol. The patient is not a candidate for anticoagulation because thrombocytopenia. 2. CHF. Continue Lasix. Order 2D echo and continue metoprolol and consider Cardiology consult, also add digoxin at this point and monitor heart rate. Cardiology, Hematology/Oncology consult for thrombocytopenia. They are on case. Discussed with Dr. Hooker. Discharge plans per clearance by Cardiology and discussed with Dr. Hooker. Kiel Lehman M.D. DR: Seymour JOB#: [id number] CC:
--- NOTE | 2019-07-29 16:20 | NUR ---
NURSE NOTES: Patient currently awake, ate 100% of dinner. A/Ox4. pt productive cough, clear. on R.A sating 100%. abdomen soft, non tender. no bm at this time. urinal at bedside. clear yellow urine.RT AC 18G S.L, 15ml flush to KVO. skin intact. pt able to reposition self. Head of bed elevated. Locked and in low position. Call light within reach. Bed alarm on. fall precautions in place. will continue to monitor pt.
--- NOTE | 2019-07-29 17:00 | Consultation ---
DATE OF CONSULTATION: 07/29/2019 CARDIOLOGY CONSULTATION CONSULTING PHYSICIAN: Teofilo Gill M.D. REASON FOR CONSULTATION: Recurrent supraventricular tachycardia. HISTORY OF PRESENT ILLNESS: The patient is a 69-year-old gentleman with history of hypertension, bronchitis, history of recurrent palpitation, SVT presented to an urgent care with tachycardia. The patient was also found to be hypotensive. Denied any chest pain or shortness of breath. The patient was evaluated in the emergency room and was found to be in supraventricular tachycardia at rate of 160 beats per minute EKG on 07/28/2019 at 12:54. The patient received attempted cardioversion vagal maneuvers failed; however, 6 mg of adenosine converted back to sinus rhythm. However, the patient went back to SVT and 12 mg of adenosine was given. The patient converted. The patient was then started on Cardizem drip and transferred to intensive care unit. Subsequently, the patient converted to sinus rhythm and remained in sinus rhythm on Cardizem drip. At the time of my evaluation, the patient denies any chest pain or shortness of breath. REVIEW OF SYSTEMS: Negative other than what was mentioned in history of present illness. PAST MEDICAL HISTORY: As mentioned above. FAMILY HISTORY: Noncontributory. SOCIAL HISTORY: He lives at home. Does not smoke or drink alcohol. PHYSICAL EXAMINATION: VITAL SIGNS: Show blood pressure of 117/70, pulse is 70, respirations 18, and he is afebrile. HEAD AND NECK: Showed no JVD or carotid bruits. LUNGS: Clear. CARDIOVASCULAR: Regular S1 and S2. No gallop or murmur. ABDOMEN: Soft. EXTREMITIES: No pitting edema. 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 EKG on 07/28/2019 at 13:01 showed sinus rhythm with PACs. No evidence of pre-excitation. LABORATORY AND DIAGNOSTIC DATA: Her labs show white count of 6, hemoglobin 9.8, hematocrit 31, and platelet count was only 52. Sodium 141, potassium 4.2, BUN of 20, creatinine 1.3. Troponin negative x2. Urine toxicology is negative. INR is 1.2. ASSESSMENT AND PLAN: 1. Recurrent palpitation and documented SVT of adenosine 6 and 12 mg. However, the patient recurred. I will discontinue Cardizem drip. Continue the patient on metoprolol 25 mg b.i.d. and digoxin 0.25 mg daily. We will try to transfer the patient to [facility] to proceed with electrophysiology study and ablation of this arrhythmia that he has had for many years, but never had an attempted ablation or electrophysiology study done. 2. Elevated BNP of 1300. His echocardiogram showed ejection fraction of 60% and moderate MR and moderate AI and some diastolic dysfunction. 3. Mild anemia as well as thrombocytopenia. Etiology is not clear at this time. At this time, I will discontinue aspirin. Thank you very much, Dr. Lehman, for allowing me to participate in the care of this patient. Please do not hesitate to contact me for any questions regarding my evaluation. It is of note that for the patient's hypertension, the patient was on Coreg 12.5 mg b.i.d. and losartan 50 mg daily as well as hydrochlorothiazide at home. Case was discussed with Dr. Lehman. Teofilo Gill M.D. DR: JOSE JOB#: [id number] CC:
--- NOTE | 2019-07-29 17:10 | NUR ---
CASE MANAGEMENT: INITIAL REVIEW 69 YO M SANDOVAL FROM HOME CC: DIZZINESS PMHx: COPD. HTN. SI:SVT. HYPOTENSION. T 98.2 HR 120 RR 18 B/P 87/60 SATS 98% ON RA CL 108 BUN 23 CR 1.7 GLU 107 AST 9 ALP 36 TOTAL CK 23 BNP 3520 IS: NS BOLUS X1 ADENOSINE IVP X2 CARDIZEM IV X2 PATIENT ADMITTED TO ICU 07/28/2019 @ 1330 DCP: PATIENT TO BE DISCHARGED TO HOME ONCE MEDICALLY CLEARED. PLAN OF CARE: CARDIO EVAL Addendum: 07/29/19 at 1719 by Sasha Rubin CM INTERQUAL
--- NOTE | 2019-07-29 18:17 | NUR ---
NURSE NOTES: pt requested to use restroom. refused use of bedpan. willing to use BSC with assistance. provided pt with privacy, educated on use of call, to get get assistance to get up. monitoring pt closely. bp slight elevation at 151/67
--- NOTE | 2019-07-29 18:35 | NUR ---
NURSE NOTES: pt back to bed. 1 large bm, soft, brown using BSC. BP 145/86, HR 89, RR 14, Sating 99%. No c/o pain.
--- NOTE | 2019-07-29 19:17 | NUR ---
HAND-OFF: Report given to Lexi GREENWOOD. pt resting in no acute distress. endorsed 205 transfer.
--- NOTE | 2019-07-29 19:30 | NUR ---
NURSE NOTES: Received report from Pavel RN. Patient in bed awake,alert oriented x4. able to verbalize needs to staff. Denies any pain or discomfort. skin warm and dry to touch. No SOB, oxygen saturation room air 100%. no s/s of acute distress noted. IV line intact on Right arm. Instructed patient to use call light for assistance. urinal and bedside commode at bedside. bed alarm on. bed locked and in low position. HR 89 on diagnostic cardiac sonographer. Will continue plan of care.
--- NOTE | 2019-07-29 21:30 | NUR ---
NURSE NOTES: Patient in bed watching TV. No s/s of acute distress noted. Frequent visual checks continued. patient with transfer order to Telemetry waiting to be transfer.
--- NOTE | 2019-07-29 23:30 | NUR ---
NURSE NOTES: Patient in bed sleeping comfortably. no s/s of acute distress noted. HR 92. call light within easy reach.
[2019-07-30] VITALS (22 sets, daily range): BP systolic 97–148; BP diastolic 49–99
--- NOTE | 2019-07-30 01:30 | NUR ---
NURSE NOTES: Patient in bed sleeping comfortably. no moaning no facial grimaces. No s/s of acute distress noted. Frequent visual checks continued. Call light within easy reach.
--- NOTE | 2019-07-30 02:45 | NUR ---
NURSE NOTES: Sasha hunt [facility] called and updated regarding the patient condition. No bed available at this time. charge nurse and patient aware. Patient will bed transfer to Telemetry around 6am.
--- NOTE | 2019-07-30 04:22 | NUR ---
NURSE NOTES: Patient awake,alert able to use urinal. Refused am care explained the importance v/s risk and benefits per patient he can do that later. No complain of pain or discomfort. Call light within easy reach.
--- NOTE | 2019-07-30 06:28 | NUR ---
TRANSFER TO FLOOR: Patient transferred to Telemetry 220-1, per Dr. Lehman. Report given to Alem GREENWOOD. Belongings and medications given to Alem GREENWOOD. Family and or S/O informed of transfer. Left message to Danisha.
--- NOTE | 2019-07-30 06:45 | NUR ---
NURSE NOTES: RECEIVED PATIENT FROM ICU. PATIENT ALERT AND ORIENTED X4, NO COMPLAINTS OF CHEST PAIN. BELONGINGS CHECKED WITH COMMERCIAL DRAFTER. MADE PATIENT COMFORTABLE AND ORIENTED TO ENVIRONMENT. FALL PRECAUTIONS IN PLACE: CALL LIGHT, BEDSIDE TABLE AND URINAL WITHIN REACH, BED IN LOW POSITION PLAN OF CARE REVIEWED.
[2019-07-30] MEDS ORDERED: Albuterol/Ipratropium 3ml neb HHN SCH (07:00)
--- NOTE | 2019-07-30 07:39 | NUR ---
NURSE NOTES: Received patient from KRYSTYNA Ferrara. Patient is AAO x4. Patient denies pain or chest palpitations. Patient is on floor worker well service. Fall precautions in place. Fall precaution in place. Call light at bedside. Bedside table and urinal within reach, bed in lowest position. Will continue with plan of care.
--- NOTE | 2019-07-30 07:39 | NUR ---
HAND-OFF: Report given to Trini GURROLA RN. PATIENT HAVING BREAKFAST, NO SIGNS OF DISTRESS NOTED.
[2019-07-30] MEDS ORDERED: Aspirin Baby 81mg ORAL SCH (09:00)
[2019-07-30] MEDS ORDERED: Metoprolol 25mg tab ORAL SCH (09:00)
--- NOTE | 2019-07-30 10:18 | Hematology/Onc Progress Note ---
Assessment/Plan Assessment/Plan Assessment and Recs: # Idiopathic Thrombocytopenic Pupura (ITP) - potential causes multifactorial, evaluate liver and viral etiologies to begin, also could be related to underlying medications patient has received. Have reviewed with him history, apparently had a bone marrow done at the [place] approximately 6 months ago, will attempt to get records, was told does not need any treatment at this time, ok for asa --> Hep panel and HIV ordered --> Peripheral smear ordered to evaluate for blasts /schistocytes --> abx and other meds have been reviewed --> ok for ppx if plt >50k w/ either heparin or lovenox --> Transfuse if Plt < 20k and fever, or if Plt < 10k without fever --> plt trend 57-->52 --> get bone marrow biopsy report from [place] --> okay for asa as per cards. At this time, equivocal on other anticoagulants such as eliquis/noac given chronically low plts (would monitor carefully in a must use scenario) --> would be ok for ablation # Anemia of chronic disease (or of iron deficiency) due to underlying chronic medical issues, multifactorial --> Anemia workup has been ordered, rule out gi bleed --> No evidence of hemolysis is noted, peripheral smear has been reviewed. --> Hgb goal >7. Transfuse prn. --> Epogen or iron at this time is not particularly indicated --> Medications have been reviewed --> low threshold for gi evaluation in case has occult + --> bone marrow biopsy is not indicated given the other more likely causes # SVT (supraventricular tachycardia), initially given dilt, adeno --> per cards management on cardizem, may need ablation # Hypotension on ivf # DVT ppx at this time hold off given low plts The timing of this note does not necessarily reflect the time of the patient was seen. Greatly appreciate consultation. Subjective Allergies: Coded Allergies: No Known Allergies (Unverified , 07/28/19) Subjective 07/30: no pain, no complaints, no discomfort, no acute events, a+ox4, labs reviewed Objective Objective Current Medications Medications (Trade) Dose Ordered Sig/Shahrzad Route PRN Reason Start Time Stop Time Status Last Admin Dose Admin Albuterol/ Ipratropium (Albuterol/ Ipratropium) 3 ml Q8HRT HHN 07/30/19 07:00 08/02/19 22:59 07/30/19 07:53 Dextrose (Dextrose 50%) 25 ml Q30M PRN IV Hypoglycemia 07/30/19 06:45 08/27/19 18:44 Dextrose (Dextrose 50%) 50 ml Q30M PRN IV Hypoglycemia 07/30/19 06:45 08/27/19 18:44 Digoxin (Lanoxin) 0.25 mg DAILY ORAL 07/30/19 09:00 08/29/19 08:59 07/30/19 08:17 Furosemide (Lasix) 20 mg DAILY IV 07/30/19 09:00 08/28/19 08:59 07/30/19 08:17 Guaifenesin (Robitussin) 100 mg Q8H PRN ORAL For Cough 07/30/19 10:45 08/27/19 18:44 Metoprolol Tartrate (Lopressor) 25 mg BID ORAL 07/30/19 09:00 08/28/19 09:59 07/30/19 08:16 Last 24 Hour Vital Signs Date Time Temp Pulse Resp B/P (MAP) Pulse Ox O2 Delivery O2 Flow Rate FiO2 07/30/19 08:17 109 07/30/19 08:16 109 148/99 07/30/19 08:00 98.1 109 18 148/99 (115) 97 07/30/19 07:49 85 20 100 Room Air 21 83 20 97 07/30/19 07:48 97 Room Air 21 07/30/19 06:30 99.7 91 18 144/94 (111) 97 07/30/19 06:00 89 17 140/84 (102) 99 07/30/19 05:00 89 17 140/84 (102) 98 07/30/19 04:00 89 07/30/19 04:00 98.2 88 14 135/80 (98) 99 07/30/19 04:00 Room Air 07/30/19 03:00 89 21 125/80 (95) 97 07/30/19 02:00 86 21 133/77 (95) 97 07/30/19 01:00 86 21 130/71 (90) 97 07/30/19 00:00 85 07/30/19 00:00 98.5 89 21 125/76 (92) 100 07/30/19 00:00 Room Air 07/29/19 23:00 86 21 137/80 (99) 100 07/29/19 22:42 91 17 100 Room Air 21 93 16 97 07/29/19 22:00 86 21 130/79 (96) 100 07/29/19 21:00 85 21 152/82 (105) 100 07/29/19 20:00 Room Air 07/29/19 20:00 98.7 93 17 130/78 (95) 100 07/29/19 20:00 86 07/29/19 19:16 93 17 130/78 (95) 100 07/29/19 19:13 97 Room Air 21 07/29/19 19:00 93 17 130/78 (95) 100 07/29/19 18:27 92 145/86 07/29/19 18:00 89 17 145/86 (105) 99 07/29/19 17:00 85 21 141/82 (101) 100 07/29/19 16:00 82 07/29/19 16:00 Room Air 07/29/19 16:00 98.8 87 18 140/85 (103) 99 07/29/19 15:00 84 18 126/81 (96) 100 07/29/19 14:54 83 21 100 Room Air 21 88 22 98 07/29/19 14:00 76 19 135/79 (97) 99 07/29/19 13:00 76 19 135/79 (97) 99 07/29/19 12:00 75 07/29/19 12:00 98.6 76 15 135/70 (91) 100 07/29/19 12:00 Room Air 07/29/19 11:00 76 19 135/79 (97) 99 07/29/19 10:08 77 117/70 07/29/19 10:00 78 20 123/70 (87) 99 07/29/19 09:30 79 20 117/70 (86) 99 07/29/19 09:00 78 18 115/70 (85) 100 07/29/19 08:30 84 20 121/74 (90) 100 07/29/19 08:00 98.3 77 17 161/83 (109) 99 07/29/19 08:00 Room Air 07/29/19 08:00 81 07/29/19 07:30 79 19 125/73 (90) 98 07/29/19 07:15 69 16 100 Room Air 21 74 19 98 07/29/19 07:05 98 Room Air 21 07/29/19 07:00 74 19 104/71 (82) 99 07/29/19 06:30 71 19 116/72 (87) 99 07/29/19 06:00 65 17 99/47 (64) 99 07/29/19 05:30 64 19 97/45 (62) 99 07/29/19 05:00 66 19 93/55 (68) 97 07/29/19 04:30 70 17 114/72 (86) 98 07/29/19 04:00 71 07/29/19 04:00 Room Air 07/29/19 04:00 98.1 71 15 114/69 (84) 99 07/29/19 03:30 68 19 101/66 (78) 100 07/29/19 03:00 70 19 115/72 (86) 99 07/29/19 02:30 68 18 127/59 (81) 99 07/29/19 02:00 68 18 112/68 (83) 98 07/29/19 01:30 70 17 114/71 (85) 99 07/29/19 01:00 69 20 114/69 (84) 99 07/29/19 00:30 68 17 108/72 (84) 99 07/29/19 00:00 67 07/29/19 00:00 Room Air 07/29/19 00:00 98.2 67 17 103/59 (74) 99 07/28/19 23:30 64 18 100 Room Air 21 67 16 100 07/28/19 23:30 67 18 101/64 (76) 100 07/28/19 23:00 64 18 94/57 (69) 100 07/28/19 22:30 63 19 94/52 (66) 98 07/28/19 22:00 63 22 97/51 (66) 98 07/28/19 21:30 67 22 90/53 (65) 99 07/28/19 21:00 68 20 102/64 (77) 99 07/28/19 20:30 99 Room Air 21 07/28/19 20:30 71 18 95/61 (72) 100 07/28/19 20:01 73 106/66 07/28/19 20:00 73 07/28/19 20:00 97.8 73 17 101/62 (75) 100 07/28/19 20:00 Room Air 07/28/19 19:00 67 17 122/72 (89) 99 07/28/19 18:45 67 18 113/69 (84) 100 07/28/19 18:30 70 18 111/69 (83) 100 07/28/19 18:15 68 18 100/69 (79) 100 07/28/19 18:00 67 18 107/70 (82) 98 07/28/19 17:45 71 18 106/70 (82) 100 07/28/19 17:33 Room Air 07/28/19 17:30 98.3 70 18 109/72 (84) 100 07/28/19 17:01 98.2 123 19 106/77 100 Room Air 07/28/19 17:00 98.2 123 19 107/72 100 Room Air 07/28/19 16:45 98.2 125 19 106/77 99 Room Air 07/28/19 16:30 98.2 127 16 107/71 99 Room Air 07/28/19 16:15 98.2 127 16 108/75 99 Room Air 07/28/19 16:00 98.2 126 20 101/62 100 Room Air 07/28/19 15:35 98.2 75 19 94/64 100 Room Air 07/28/19 15:08 98.2 70 23 91/61 100 Room Air 07/28/19 14:53 98.2 75 15 94/62 100 Room Air 07/28/19 14:38 98.2 73 16 92/60 100 Room Air 07/28/19 14:35 98.2 73 15 88/60 100 Room Air 07/28/19 14:09 98.2 75 16 108/83 100 Room Air 07/28/19 13:54 98.2 128 18 98/70 99 Room Air 07/28/19 13:39 98.2 130 18 112/77 98 Room Air 07/28/19 13:24 98.2 127 15 101/69 100 Room Air 07/28/19 13:24 125 101/69 07/28/19 13:15 161 112/69 07/28/19 13:14 161 07/28/19 13:10 161 18 Room Air 07/28/19 13:08 98.2 164 21 112/69 100 07/28/19 13:05 161 07/28/19 12:36 98.2 120 18 87/60 (69) 98 Intake and Output 07/29/19 07/30/19 19:00 07:00 Intake Total 780.0 ml 100 ml Output Total 1475 ml 800 ml Balance -695.0 ml -700 ml Intake Oral 770 ml 100 ml IV Total 10.0 ml Output Urine Total 1475 ml 800 ml # Voids 1 # Bowel Movements 1 Labs Test 07/28/19 12:59 07/28/19 13:56 07/29/19 03:40 07/29/19 10:30 White Blood Count 6.4 K/UL (4.8-10.8) 6.0 K/UL (4.8-10.8) Red Blood Count 3.16 M/UL (4.70-6.10) 2.85 M/UL (4.70-6.10) Hemoglobin 10.8 G/DL (14.2-18.0) 9.8 G/DL (14.2-18.0) Hematocrit 34.4 % (42.0-52.0) 31.0 % (42.0-52.0) Mean Corpuscular Volume 109 FL (80-99) 109 FL (80-99) Mean Corpuscular Hemoglobin 34.3 PG (27.0-31.0) 34.3 PG (27.0-31.0) Mean Corpuscular Hemoglobin Concent 31.5 G/DL (32.0-36.0) 31.5 G/DL (32.0-36.0) Red Cell Distribution Width 16.6 % (11.6-14.8) 16.2 % (11.6-14.8) Platelet Count 57 K/UL (150-450) 52 K/UL (150-450) Mean Platelet Volume 9.5 FL (6.5-10.1) 10.2 FL (6.5-10.1) Neutrophils (%) (Auto) % (45.0-75.0) % (45.0-75.0) Lymphocytes (%) (Auto) % (20.0-45.0) % (20.0-45.0) Monocytes (%) (Auto) % (1.0-10.0) % (1.0-10.0) Eosinophils (%) (Auto) % (0.0-3.0) % (0.0-3.0) Basophils (%) (Auto) % (0.0-2.0) % (0.0-2.0) Differential Total Cells Counted 100 100 Neutrophils % (Manual) 32 % (45-75) 35 % (45-75) Lymphocytes % (Manual) 30 % (20-45) 34 % (20-45) Monocytes % (Manual) 34 % (1-10) 28 % (1-10) Eosinophils % (Manual) 2 % (0-3) 3 % (0-3) Basophils % (Manual) 2 % (0-2) 0 % (0-2) Band Neutrophils 0 % (0-8) 0 % (0-8) Platelet Estimate Decreased Decreased Platelet Morphology Normal Normal Hypochromasia 1+ 1+ Anisocytosis 1+ 1+ Macrocytosis 1+ 1+ Prothrombin Time 12.9 SEC (9.30-11.50) Prothromb Time International Ratio 1.2 (0.9-1.1) Activated Partial Thromboplast Time 27 SEC (23-33) Sodium Level 141 MMOL/L (136-145) 141 MMOL/L (136-145) Potassium Level 4.2 MMOL/L (3.5-5.1) 4.2 MMOL/L (3.5-5.1) Chloride Level 108 MMOL/L (98-107) 109 MMOL/L (98-107) Carbon Dioxide Level 23 MMOL/L (21-32) 21 MMOL/L (21-32) Anion Gap 10 mmol/L (5-15) 11 mmol/L (5-15) Blood Urea Nitrogen 23 mg/dL (7-18) 20 mg/dL (7-18) Creatinine 1.7 MG/DL (0.55-1.30) 1.3 MG/DL (0.55-1.30) Estimat Glomerular Filtration Rate mL/min (>60) mL/min (>60) Glucose Level 107 MG/DL (74-106) 89 MG/DL (74-106) Calcium Level 8.9 MG/DL (8.5-10.1) 8.6 MG/DL (8.5-10.1) Magnesium Level 1.8 MG/DL (1.8-2.4) Total Bilirubin 0.6 MG/DL (0.2-1.0) Aspartate Amino Transf (AST/SGOT) 9 U/L (15-37) Alanine Aminotransferase (ALT/SGPT) 16 U/L (12-78) Alkaline Phosphatase 36 U/L (46-116) Total Creatine Kinase 23 U/L (26-308) Creatine Kinase MB < 0.5 NG/ML (0.0-3.6) Creatine Kinase MB Relative Index Troponin I 0.000 ng/mL (0.000-0.056) 0.000 ng/mL (0.000-0.056) Pro-B-Type Natriuretic Peptide 3520 pg/mL (0-125) 1309 pg/mL (0-125) Total Protein 8.5 G/DL (6.4-8.2) Albumin 2.9 G/DL (3.4-5.0) Globulin 5.6 g/dL Albumin/Globulin Ratio 0.5 (1.0-2.7) Lipase 88 U/L (73-393) Thyroid Stimulating Hormone (TSH) 0.758 uiU/mL (0.358-3.740) Free Thyroxine 1.10 NG/DL (0.76-1.46) Free Triiodothyronine 1.8 pg/mL (2.3-4.2) Urine Color Yellow Urine Appearance Clear Urine pH 5 (4.5-8.0) Urine Specific [place] 1.015 (1.005-1.035) Urine Protein 3+ (NEGATIVE) Urine Glucose (UA) Negative (NEGATIVE) Urine Ketones Negative (NEGATIVE) Urine Blood 1+ (NEGATIVE) Urine Nitrite Negative (NEGATIVE) Urine Bilirubin Negative (NEGATIVE) Urine Urobilinogen Normal MG/DL (0.0-1.0) Urine Leukocyte Esterase 1+ (NEGATIVE) Urine RBC 2-4 /HPF (0 - 0) Urine WBC 2-4 /HPF (0 - 0) Urine Squamous Epithelial Cells None /LPF (NONE/OCC) Urine Bacteria Few /HPF (NONE) Urine Opiates Screen Negative (NEGATIVE) Urine Barbiturates Screen Negative (NEGATIVE) Phencyclidine (PCP) Screen Negative (NEGATIVE) Urine Amphetamines Screen Negative (NEGATIVE) Urine Benzodiazepines Screen Negative (NEGATIVE) Urine Cocaine Screen Negative (NEGATIVE) Urine Marijuana (THC) Screen Negative (NEGATIVE) Other Cell Type Pathologist review Reticulocyte Count 0.7 % (0.5-2.0) Carcinoembryonic Antigen 0.4 ng/mL (0.0-4.7) Test 07/29/19 11:50 Iron Level 35 ug/dL (50-175) Total Iron Binding Capacity 170 ug/dL (250-450) Percent Iron Saturation 21 % (15-50) Unsaturated Iron Binding 135 ug/dL (112-346) Ferritin 620 NG/ML (8-388) Lactate Dehydrogenase 101 U/L (81-234) Vitamin B12 Level 1561 PG/ML (193-986) Folate 11.1 NG/ML (8.6-58.9) Height (Feet): 6 Height (Inches): 0.00 Weight (Pounds): 214 Objective Vital Signs reviewed General: well appearing, no apparent distress, alert Chest: lungs clear, no respiratory distress, no retraction Cardiovascular #1: normal peripheral pulses, rrr Gastrointestinal: non tender, soft, nt, nd Neurologic: alert, oriented x3 Psychiatric: mood/affect normal Darrell Hooker MD Jul 30, 2019 10:18
--- NOTE | 2019-07-30 10:30 | NUR ---
NURSE NOTES: Notified at 0845am- Patient Having ST 166. Gave morning medications. 9:45am- Patient heart rate fluctuating from 130 -160. 10am- EKG completed. 10:10am- Received contact from Dr. Gill. Patient to be transferred to ICu with [facility]. Addendum: 07/30/19 at 1105 by Yordan Brady RN @10:10am Patient denies any chest pain. Patient states he can feel his heart race.
[2019-07-30] MEDS ORDERED: guaiFENesin 100mg/5ml Liq ud ORAL PRN (10:45)
--- NOTE | 2019-07-30 11:05 | NUR ---
HAND-OFF: Report given to KRYSTYNA Norris. Endorsed about [facility] report request and confirmation with Dr. Gill about transfer order. Patient is resting in bed. Belonging checklist completed and signed.
--- NOTE | 2019-07-30 11:06 | NUR ---
NURSE NOTES: Received patient from KRYSTYNA Farr. Patient alert and oriented times 4. Patient denies pain or acute distress. Patient transferred to ICU due to episodes of SVT. HR fluctuates from 90 beats per min to 160 beats per min. Patient to be started on cardizem drip. Will follow up with pharmacy. Patient HR currently 90 beats per minute, SpO2 100%, blood pressure 119/97, RR 16. Patient on room air with no respiratory distress. Patient denies pain. Patient skin intact. patient able to turn/reposition without assistance. Will follow up to ensure he is doing so. Patient able to use urinal. Two urinals provided at the bedside. Patient to be transferred to [facility] for ablation per Dr Gill. Will follow up with case management. Transfer packet ready. Will continue to monitor HR and BP. Patient bed in low position with bed alarm on and call light in reach. Will initiate cardizem when it arrives from pharmacy. Will follow up with pharmacy at this time.
--- NOTE | 2019-07-30 11:42 | NUR ---
NURSE NOTES: Dr. Lehman notified is back to ICU due to SVT and requiring Cardizem drip
--- NOTE | 2019-07-30 11:48 | Cardiac Electrophysiology PN ---
Assessment/Plan Assessment/Plan 1. Recurrent palpitation and documented SVT of adenosine 6 and 12 mg. Transfer back to ICU and start Cardizem drip. Increase metoprolol to 50 mg b.i.d. and continue digoxin 0.25 mg daily. Dig level pending Awaiting transfer to [facility] for electrophysiology study and ablation of this arrhythmia 2. Elevated BNP of 1300. His echocardiogram showed ejection fraction of 60% and moderate MR and moderate AI and some diastolic dysfunction. 3. Chronic ITP. OKed by Dr. Seay to proceed with ablation. DW Dr Seay, Transfer CTR and Subjective Subjective Transferred back to ICU again as developed SVT at rate 160-170s again documented on 12 lead ECG Objective Last 24 Hour Vital Signs Date Time Temp Pulse Resp B/P (MAP) Pulse Ox O2 Delivery O2 Flow Rate FiO2 07/30/19 11:00 100 18 119/79 (92) 100 07/30/19 10:38 166 07/30/19 08:44 88 07/30/19 08:17 109 07/30/19 08:16 109 148/99 07/30/19 08:00 98.1 109 18 148/99 (115) 97 07/30/19 08:00 Room Air 07/30/19 07:49 85 20 100 Room Air 21 83 20 97 07/30/19 07:48 97 Room Air 21 07/30/19 06:30 99.7 91 18 144/94 (111) 97 07/30/19 06:00 89 17 140/84 (102) 99 07/30/19 05:00 89 17 140/84 (102) 98 07/30/19 04:00 89 07/30/19 04:00 98.2 88 14 135/80 (98) 99 07/30/19 04:00 Room Air 07/30/19 03:00 89 21 125/80 (95) 97 07/30/19 02:00 86 21 133/77 (95) 97 07/30/19 01:00 86 21 130/71 (90) 97 07/30/19 00:00 85 07/30/19 00:00 98.5 89 21 125/76 (92) 100 07/30/19 00:00 Room Air 07/29/19 23:00 86 21 137/80 (99) 100 07/29/19 22:42 91 17 100 Room Air 21 93 16 97 07/29/19 22:00 86 21 130/79 (96) 100 07/29/19 21:00 85 21 152/82 (105) 100 07/29/19 20:00 Room Air 07/29/19 20:00 98.7 93 17 130/78 (95) 100 07/29/19 20:00 86 07/29/19 19:16 93 17 130/78 (95) 100 07/29/19 19:13 97 Room Air 21 07/29/19 19:00 93 17 130/78 (95) 100 07/29/19 18:27 92 145/86 07/29/19 18:00 89 17 145/86 (105) 99 07/29/19 17:00 85 21 141/82 (101) 100 07/29/19 16:00 82 07/29/19 16:00 Room Air 07/29/19 16:00 98.8 87 18 140/85 (103) 99 07/29/19 15:00 84 18 126/81 (96) 100 07/29/19 14:54 83 21 100 Room Air 21 88 22 98 07/29/19 14:00 76 19 135/79 (97) 99 07/29/19 13:00 76 19 135/79 (97) 99 07/29/19 12:00 75 07/29/19 12:00 98.6 76 15 135/70 (91) 100 07/29/19 12:00 Room Air Intake and Output 07/29/19 07/30/19 18:59 06:59 Intake Total 785.0 ml 100 ml Output Total 1475 ml 800 ml Balance -690.0 ml -700 ml Intake Oral 770 ml 100 ml IV Total 15.0 ml Output Urine Total 1475 ml 800 ml # Voids 1 # Bowel Movements 1 Laboratory Tests Test 07/29/19 11:50 Iron Level 35 ug/dL (50-175) L Total Iron Binding Capacity 170 ug/dL (250-450) L Percent Iron Saturation 21 % (15-50) Unsaturated Iron Binding 135 ug/dL (112-346) Ferritin 620 NG/ML (8-388) H Lactate Dehydrogenase 101 U/L (81-234) Vitamin B12 Level 1561 PG/ML (193-986) H Folate 11.1 NG/ML (8.6-58.9) Objective HEAD AND NECK: No JVD or carotid bruits. LUNGS: Clear. CARDIOVASCULAR: Regular S1 and S2. No gallop or murmur. ABDOMEN: Soft. EXTREMITIES: No pitting edema. Teofilo Gill MD Jul 30, 2019 11:48
--- NOTE | 2019-07-30 11:58 | NUR ---
NURSE NOTES: HR jumped to 160's. Cardizem drip increased to 5mg/hr (5mL/hr). HR now 156bpm. Cardizem increased to 10mg/hr (10mL/hr).
[2019-07-30 12:36] LABS: HEMATOCRIT 33.7 % (42.0-52.0); HEMOGLOBIN 10.9 G/DL (14.2-18.0); MEAN CORPUSCULAR VOLUME 106 FL (80-99); PLATELET COUNT 68 K/UL (150-450); RED BLOOD COUNT 3.18 M/UL (4.70-6.10); RED CELL DISTRIBUTION WIDTH 15.6 % (11.6-14.8)
[2019-07-30 12:46] LABS: ANION GAP 9 mmol/L (5-15); BLOOD UREA NITROGEN 16 mg/dL (7-18); CARBON DIOXIDE 25 MMOL/L (21-32); CHLORIDE 102 MMOL/L (98-107); CREATININE 1.2 MG/DL (0.55-1.30); POTASSIUM 3.9 MMOL/L (3.5-5.1); SODIUM 136 MMOL/L (136-145)
[2019-07-30 12:52] LABS: ALANINE AMINOTRANSFERASE 16 U/L (12-78); ALBUMIN 2.9 G/DL (3.4-5.0); ALBUMIN/GLOBULIN RATIO 0.5 (1.0-2.7); ALKALINE PHOSPHATASE 49 U/L (46-116); ASPARTATE AMINO TRANSFERASE 11 U/L (15-37); BILIRUBIN,TOTAL 0.7 MG/DL (0.2-1.0)
--- NOTE | 2019-07-30 13:00 | NUR ---
Patient HR continued to fluctuate from normal sinus rhythm in the 90's to SVT in the 160's. Cardizem increased to 12.5mg/hr at 1230. Patient NOW fluctuating from 140's to 90 beats per minute. Cardizem increased to 15mg/hr. This is the maximum dose. Will continue to monitor and notify MD if HR does not stabilize.
--- NOTE | 2019-07-30 13:16 | NUR ---
SIGNAL MAINTAINERTURKEY CLEANER SI: SUPRAVENTRICULAR TACHYCARDIA T. 99.1 HR HR 166 RR 19 B/P 119/79 IS: CARDIZEM GTT LASIX IV DIGOXIN LOPRESSOR TRANSFER TO [facility] FOR ABLATION ICU STATUS
[2019-07-30] MEDS: guaiFENesin 100mg/5ml Liq ud ORAL PRN (13:49)
--- NOTE | 2019-07-30 14:07 | NUR ---
SOCIAL STUDIES TEACHER NOTES SPOKE WITH RAYMOND FROM [facility], PT ACCEPTED. PENDING BED.
--- NOTE | 2019-07-30 14:30 | NUR ---
NURSE NOTES: Dr Hooker ordered for bone biopsy test results to be obtained from [facility]. Release of information documentation signed by patient and faxed to medical records at the [facility]. Awaiting response.
[2019-07-30] MEDS: Albuterol/Ipratropium 3ml neb HHN SCH ×2 (15:04→23:20)
--- NOTE | 2019-07-30 15:10 | NUR ---
HAND-OFF: Report given to KRYSTYNA Owusu. Patient continues to have irregular heart rate. He fluctuates from the 160s to the 90s beats per minute. Cardizem drip is running at max dose. Endorsed to follow up.
--- NOTE | 2019-07-30 15:20 | NUR ---
NURSE NOTES: Patient report received from KRYSTYNA Norris. No apparent s/s acute distress. On RA and saturate well at 100%. On Cardizem drip at 15mg/hr for uncontrol HR.Peripheral line 18G on RAC , line patent with no s/s infiltration.Pt continent bowel and bladder and uses urinal. at bedside. Call light within easy, bed in low position for safety. Pt kept on close monitoring.
--- NOTE | 2019-07-30 16:10 | NUR ---
NURSE NOTES: Pt in bed watching tv, able to self reposition. at bedside, call light within easy reach.Denied of any pain and discomfort at this time.Report for release medical records on bone biopsy received from [facility] and relayed to Dr Seay. Awaiting Raymond call for room availability and transfer.Pt kept on close monitoring
--- NOTE | 2019-07-30 17:15 | Progress Note ---
DATE: 07/30/2019 SUBJECTIVE: This 69-year-old male came with AFib with rapid ventricular rate, CHF. He was sinus rhythm yesterday, but again this morning went in AFib with rapid ventricular rate. The patient is waiting transfer to [facility] where he is going to have ablation. OBJECTIVE: VITAL SIGNS: The patient's blood pressure is 124/70, pulse 74, respirations 18, no fever. HEENT: NAD. CHEST: Bilateral few crackles. CARDIOVASCULAR: Regular rhythm. No gallop. No murmur. ABDOMEN: Soft. Positive bowel sounds. Nontender. EXTREMITIES: No edema. ASSESSMENT: 1. AFib with rapid ventricular rate. 2. CHF. 3. Hypertension. 4. Degenerative arthritis. PLAN: We will continue Cardizem. Currently he is on metoprolol. Continue current treatment. Waiting for [facility] room to transfer today. Discussed with the charge nurse. Discussed with Dr. Gill and the patient and family. Kiel Lehman M.D. DR: ROYAL JOB#: [id number] CC:
--- NOTE | 2019-07-30 18:02 | NUR ---
NURSE NOTES: Pt awake, watching TV , assist pt with ADLs done . Consumed 100% at diner.HOB elevated to prevent aspiration.Call light within easy reach.Will continue to monitor. Addendum: 07/30/19 at 1902 by Francoise Bustillos RN Message left to Medical record at [facility] to send the bone biopsy only received the EGD biopsy, will endorsed next shift for follow up
--- NOTE | 2019-07-30 19:23 | NUR ---
HAND-OFF: Report given to KRYSTYNA Gonzalez.
--- NOTE | 2019-07-30 19:30 | NUR ---
NURSE NOTES: Received report from KRYSTYNA Owusu. Patient is alert and oriented x4. Watching TV. No acute distress/SOB noted. Patient denies any pain/discomfort at this time. SR 80s on the monitor. Right AC 18G IV intact and running with cardizem 15mg/hr. Call light placed in easy reach. Will continue plan of care.
[2019-07-30] MEDS: Metoprolol 25mg tab ORAL SCH (20:48)
--- NOTE | 2019-07-30 21:05 | NUR ---
NURSE NOTES: Due medication given. Patient is in stable condition. SR 80s on the monitor.
--- NOTE | 2019-07-30 23:02 | NUR ---
NURSE NOTES: Patient asleep. No distress noted. Will continue plan of care.
[2019-07-31] VITALS (23 sets, daily range): BP systolic 92–135; BP diastolic 52–80
[2019-07-31] MEDS: guaiFENesin 100mg/5ml Liq ud ORAL PRN ×2 (00:09→08:24)
--- NOTE | 2019-07-31 00:34 | NUR ---
NURSE NOTES: Provided bedside commode. Large brown soft BM noted.
--- NOTE | 2019-07-31 02:26 | NUR ---
NURSE NOTES: Changed bed linens. SR 70S on the monitor. Will continue plan of care.
--- NOTE | 2019-07-31 04:00 | NUR ---
NURSE NOTES: Patient voided using urinal.
[2019-07-31 04:56] LABS: HEMATOCRIT 30.9 % (42.0-52.0); MEAN CORPUSCULAR VOLUME 107 FL (80-99); PLATELET COUNT 60 K/UL (150-450); RED BLOOD COUNT 2.89 M/UL (4.70-6.10); RED CELL DISTRIBUTION WIDTH 16.4 % (11.6-14.8); WHITE BLOOD COUNT 7.3 K/UL (4.8-10.8)
[2019-07-31 05:41] LABS: ANION GAP 11 mmol/L (5-15); BLOOD UREA NITROGEN 15 mg/dL (7-18); CALCIUM 8.8 MG/DL (8.5-10.1); CARBON DIOXIDE 24 MMOL/L (21-32); CHLORIDE 105 MMOL/L (98-107); CREATININE 1.2 MG/DL (0.55-1.30); SODIUM 140 MMOL/L (136-145)
--- NOTE | 2019-07-31 06:00 | NUR ---
NURSE NOTES: Cardizem drip titrate to 12.5mg/hr. SR 60s on the monitor. Will continue to monitor.
[2019-07-31] MEDS: Albuterol/Ipratropium 3ml neb HHN SCH ×2 (07:20→14:53)
--- NOTE | 2019-07-31 07:30 | NUR ---
NURSE NOTES: Received the patient KRYSTYNA Ortiz. Patient is awake, alert and orientedx4. Patient on room air. O2 sat 100%. No acute distress noted. SR 70 noted on the cardiac exercise specialist. Right AC 18G intact, cardizem gtt running at 15ml/hr. Decreased to 12.5ml/hr. SCDs on bilateral lower extremities. Bed in lowest position, locked, side rails upx3. Call light within reach. Will continue to monitor.
--- NOTE | 2019-07-31 07:31 | NUR ---
HAND-OFF: Report given to KRYSTYNA Mendoza. Endorsed plan of care.
[2019-07-31] MEDS: Metoprolol 25mg tab ORAL SCH (08:15)
--- NOTE | 2019-07-31 08:30 | NUR ---
NURSE NOTES: Patient having breakfast in bed. Patient denies any pain or SOB. Metoprolol held for BP 92/80. PRN guaifenesin given for cough.
--- NOTE | 2019-07-31 09:27 | Hematology/Onc Progress Note ---
Assessment/Plan Assessment/Plan Assessment and Recs: # Idiopathic Thrombocytopenic Pupura (ITP) - potential causes multifactorial, evaluate liver and viral etiologies to begin, also could be related to underlying medications patient has received. Have reviewed with him history, apparently had a bone marrow done at [facility] approximately 6 months ago, will attempt to get records, was told does not need any treatment at this time, ok for asa --> Hep panel and HIV negative --> Peripheral smear ordered to evaluate for blasts /schistocytes and none noted --> abx and other meds have been reviewed --> ok for ppx if plt >50k w/ either heparin or lovenox --> Transfuse if Plt < 20k and fever, or if Plt < 10k without fever --> plt trend 57-->52 --> get bone marrow biopsy report [facility] (PENDING) --> okay for asa as per cards --> would be ok for ablation given low plts since remaining plts are sequestered in the spleen # Anemia of chronic disease due to underlying chronic medical issues, multifactorial --> Anemia workup has been reviewed --> No evidence of hemolysis is noted, peripheral smear has been reviewed. --> Hgb goal >7. Transfuse prn. --> Epogen or iron at this time is not particularly indicated --> Medications have been reviewed --> low threshold for gi evaluation in case has occult + --> bone marrow biopsy is not indicated given the other more likely causes # SVT (supraventricular tachycardia), initially given dilt, adeno --> per cards management on cardizem, may need ablation # Hypotension on ivf # DVT ppx at this time hold off given low plts --> scds The timing of this note does not necessarily reflect the time of the patient was seen. Greatly appreciate consultation. Subjective Respiratory: Denies: no symptoms, cough, shortness of breath, SOB with excertion, SOB at rest, sputum, wheezing, other Gastrointestinal/Abdominal: Denies: no symptoms, abdomen distended, abdominal pain, black stools, tarry stools, blood in stool, constipated, diarrhea, difficulty swallowing, nausea, poor appetite, poor fluid intake, rectal bleeding , vomiting, other Genitourinary: Denies: no symptoms, burning, discharge, frequency, flank pain, hematuria, incontinence, pain, urgency, other Neurologic/Psychiatric: Denies: no symptoms, anxiety, depressed, emotional problems, headache, numbness, paresthesia, pre-existing deficit, seizure, tingling, tremors, weakness, other Endocrine: Denies: no symptoms, excessive sweating, flushing, intolerance to cold, intolerance to heat, increased hunger, increased thirst, increased urine, unexplained weight gain, unexplained weight loss, other Allergies: Coded Allergies: No Known Allergies (Unverified , 07/28/19) Subjective 07/30: no pain, no complaints, no discomfort, no acute events, a+ox4, labs reviewed 07/31: on ra, sr, scds, dw rn, and yest dw cards Objective Objective Current Medications Medications (Trade) Dose Ordered Sig/Shahrzad Route PRN Reason Start Time Stop Time Status Last Admin Dose Admin Albuterol/ Ipratropium (Albuterol/ Ipratropium) 3 ml Q8HRT HHN 07/30/19 15:00 08/02/19 22:59 07/31/19 07:20 Dextrose (Dextrose 50%) 25 ml Q30M PRN IV Hypoglycemia 07/30/19 11:15 08/27/19 18:44 Dextrose (Dextrose 50%) 50 ml Q30M PRN IV Hypoglycemia 07/30/19 11:15 08/27/19 18:44 Digoxin (Lanoxin) 0.25 mg DAILY ORAL 07/31/19 09:00 08/29/19 08:59 07/31/19 08:15 Diltiazem HCl 125 mg/Dextrose 125 ml @ 0 mls/hr Q24H IV 07/30/19 11:30 08/29/19 11:29 07/31/19 04:21 Furosemide (Lasix) 20 mg DAILY IV 07/31/19 09:00 08/28/19 08:59 07/31/19 08:15 Guaifenesin (Robitussin) 100 mg Q8H PRN ORAL For Cough 07/30/19 11:30 08/27/19 11:29 07/31/19 08:24 Metoprolol Tartrate (Lopressor) 25 mg Q12HR ORAL 07/30/19 21:00 08/29/19 20:59 07/30/19 20:48 Last 24 Hour Vital Signs Date Time Temp Pulse Resp B/P (MAP) Pulse Ox O2 Delivery O2 Flow Rate FiO2 07/31/19 09:00 75 17 116/66 (83) 98 07/31/19 08:30 75 19 114/61 (78) 98 07/31/19 08:15 76 92/80 07/31/19 08:15 80 07/31/19 08:00 Room Air 07/31/19 08:00 98.4 76 17 92/80 (84) 99 07/31/19 08:00 77 07/31/19 07:30 69 18 96/52 (67) 98 07/31/19 07:20 71 16 100 Room Air 21 72 14 100 07/31/19 07:20 100 Room Air 21 07/31/19 07:00 66 17 116/70 (85) 98 07/31/19 06:00 68 17 111/62 (78) 98 07/31/19 05:00 66 17 109/59 (76) 98 07/31/19 04:21 71 108/65 07/31/19 04:00 69 07/31/19 04:00 98.3 70 17 108/65 (79) 99 07/31/19 04:00 Room Air 07/31/19 03:00 69 19 111/71 (84) 99 07/31/19 02:00 68 18 108/66 (80) 98 07/31/19 01:00 71 21 109/63 (78) 99 07/31/19 00:00 67 07/31/19 00:00 Room Air 07/31/19 00:00 98.5 71 19 110/65 (80) 99 07/30/19 23:32 68 18 99 07/30/19 23:00 66 20 103/61 (75) 99 07/30/19 22:00 68 19 97/49 (65) 98 07/30/19 21:00 75 22 115/66 (82) 99 07/30/19 20:48 80 117/67 07/30/19 20:23 99 Room Air 21 07/30/19 20:00 99.0 75 19 113/67 (82) 99 07/30/19 20:00 Room Air 07/30/19 20:00 87 07/30/19 19:23 83 110/66 07/30/19 19:00 77 22 105/62 (76) 100 07/30/19 18:00 76 18 119/74 (89) 100 07/30/19 17:00 98.2 86 23 110/67 (81) 10 07/30/19 16:00 80 16 120/68 (85) 100 07/30/19 16:00 Room Air 07/30/19 16:00 135 07/30/19 15:14 87 16 100 Room Air 21 95 15 100 07/30/19 15:00 93 16 125/70 (88) 100 07/30/19 14:00 103 16 122/67 (85) 100 07/30/19 13:00 110 16 139/78 (98) 100 07/30/19 12:00 98.9 104 23 137/87 (104) 10 07/30/19 12:00 Room Air 07/30/19 11:53 97 119/79 07/30/19 11:35 100 07/30/19 11:26 160 07/30/19 11:00 100 18 119/79 (92) 100 07/30/19 10:51 100 07/30/19 10:38 166 07/30/19 08:44 88 07/30/19 08:17 109 07/30/19 08:16 109 148/99 07/30/19 08:00 98.1 109 18 148/99 (115) 97 07/30/19 08:00 Room Air 07/30/19 07:49 85 20 100 Room Air 21 83 20 97 07/30/19 07:48 97 Room Air 21 07/30/19 06:30 99.7 91 18 144/94 (111) 97 07/30/19 06:00 89 17 140/84 (102) 99 07/30/19 05:00 89 17 140/84 (102) 98 07/30/19 04:00 89 07/30/19 04:00 98.2 88 14 135/80 (98) 99 07/30/19 04:00 Room Air 07/30/19 03:00 89 21 125/80 (95) 97 07/30/19 02:00 86 21 133/77 (95) 97 07/30/19 01:00 86 21 130/71 (90) 97 07/30/19 00:00 85 07/30/19 00:00 98.5 89 21 125/76 (92) 100 07/30/19 00:00 Room Air 07/29/19 23:00 86 21 137/80 (99) 100 07/29/19 22:42 91 17 100 Room Air 21 93 16 97 07/29/19 22:00 86 21 130/79 (96) 100 07/29/19 21:00 85 21 152/82 (105) 100 07/29/19 20:00 Room Air 07/29/19 20:00 98.7 93 17 130/78 (95) 100 07/29/19 20:00 86 07/29/19 19:16 93 17 130/78 (95) 100 07/29/19 19:13 97 Room Air 21 07/29/19 19:00 93 17 130/78 (95) 100 07/29/19 18:27 92 145/86 07/29/19 18:00 89 17 145/86 (105) 99 07/29/19 17:00 85 21 141/82 (101) 100 07/29/19 16:00 82 07/29/19 16:00 Room Air 07/29/19 16:00 98.8 87 18 140/85 (103) 99 07/29/19 15:00 84 18 126/81 (96) 100 07/29/19 14:54 83 21 100 Room Air 21 88 22 98 07/29/19 14:00 76 19 135/79 (97) 99 07/29/19 13:00 76 19 135/79 (97) 99 07/29/19 12:00 75 07/29/19 12:00 98.6 76 15 135/70 (91) 100 07/29/19 12:00 Room Air 07/29/19 11:00 76 19 135/79 (97) 99 07/29/19 10:08 77 117/70 07/29/19 10:00 78 20 123/70 (87) 99 07/29/19 09:30 79 20 117/70 (86) 99 Intake and Output 07/30/19 07/31/19 19:00 07:00 Intake Total 1041.25 ml 364.0 ml Output Total 1050 ml 400 ml Balance -8.75 ml -36.0 ml Intake Oral 940 ml 200 ml IV Total 101.25 ml 164.0 ml Output Urine Total 1050 ml 400 ml # Voids 2 # Bowel Movements 2 Labs Test 07/28/19 12:59 07/28/19 13:56 07/29/19 03:40 07/29/19 10:30 White Blood Count 6.4 K/UL (4.8-10.8) 6.0 K/UL (4.8-10.8) Red Blood Count 3.16 M/UL (4.70-6.10) 2.85 M/UL (4.70-6.10) Hemoglobin 10.8 G/DL (14.2-18.0) 9.8 G/DL (14.2-18.0) Hematocrit 34.4 % (42.0-52.0) 31.0 % (42.0-52.0) Mean Corpuscular Volume 109 FL (80-99) 109 FL (80-99) Mean Corpuscular Hemoglobin 34.3 PG (27.0-31.0) 34.3 PG (27.0-31.0) Mean Corpuscular Hemoglobin Concent 31.5 G/DL (32.0-36.0) 31.5 G/DL (32.0-36.0) Red Cell Distribution Width 16.6 % (11.6-14.8) 16.2 % (11.6-14.8) Platelet Count 57 K/UL (150-450) 52 K/UL (150-450) Mean Platelet Volume 9.5 FL (6.5-10.1) 10.2 FL (6.5-10.1) Neutrophils (%) (Auto) % (45.0-75.0) % (45.0-75.0) Lymphocytes (%) (Auto) % (20.0-45.0) % (20.0-45.0) Monocytes (%) (Auto) % (1.0-10.0) % (1.0-10.0) Eosinophils (%) (Auto) % (0.0-3.0) % (0.0-3.0) Basophils (%) (Auto) % (0.0-2.0) % (0.0-2.0) Differential Total Cells Counted 100 100 Neutrophils % (Manual) 32 % (45-75) 35 % (45-75) Lymphocytes % (Manual) 30 % (20-45) 34 % (20-45) Monocytes % (Manual) 34 % (1-10) 28 % (1-10) Eosinophils % (Manual) 2 % (0-3) 3 % (0-3) Basophils % (Manual) 2 % (0-2) 0 % (0-2) Band Neutrophils 0 % (0-8) 0 % (0-8) Platelet Estimate Decreased Decreased Platelet Morphology Normal Normal Hypochromasia 1+ 1+ Anisocytosis 1+ 1+ Macrocytosis 1+ 1+ Prothrombin Time 12.9 SEC (9.30-11.50) Prothromb Time International Ratio 1.2 (0.9-1.1) Activated Partial Thromboplast Time 27 SEC (23-33) Sodium Level 141 MMOL/L (136-145) 141 MMOL/L (136-145) Potassium Level 4.2 MMOL/L (3.5-5.1) 4.2 MMOL/L (3.5-5.1) Chloride Level 108 MMOL/L (98-107) 109 MMOL/L (98-107) Carbon Dioxide Level 23 MMOL/L (21-32) 21 MMOL/L (21-32) Anion Gap 10 mmol/L (5-15) 11 mmol/L (5-15) Blood Urea Nitrogen 23 mg/dL (7-18) 20 mg/dL (7-18) Creatinine 1.7 MG/DL (0.55-1.30) 1.3 MG/DL (0.55-1.30) Estimat Glomerular Filtration Rate mL/min (>60) mL/min (>60) Glucose Level 107 MG/DL (74-106) 89 MG/DL (74-106) Calcium Level 8.9 MG/DL (8.5-10.1) 8.6 MG/DL (8.5-10.1) Magnesium Level 1.8 MG/DL (1.8-2.4) Total Bilirubin 0.6 MG/DL (0.2-1.0) Aspartate Amino Transf (AST/SGOT) 9 U/L (15-37) Alanine Aminotransferase (ALT/SGPT) 16 U/L (12-78) Alkaline Phosphatase 36 U/L (46-116) Total Creatine Kinase 23 U/L (26-308) Creatine Kinase MB < 0.5 NG/ML (0.0-3.6) Creatine Kinase MB Relative Index Troponin I 0.000 ng/mL (0.000-0.056) 0.000 ng/mL (0.000-0.056) Pro-B-Type Natriuretic Peptide 3520 pg/mL (0-125) 1309 pg/mL (0-125) Total Protein 8.5 G/DL (6.4-8.2) Albumin 2.9 G/DL (3.4-5.0) Globulin 5.6 g/dL Albumin/Globulin Ratio 0.5 (1.0-2.7) Lipase 88 U/L (73-393) Thyroid Stimulating Hormone (TSH) 0.758 uiU/mL (0.358-3.740) Free Thyroxine 1.10 NG/DL (0.76-1.46) Free Triiodothyronine 1.8 pg/mL (2.3-4.2) Urine Color Yellow Urine Appearance Clear Urine pH 5 (4.5-8.0) Urine Specific [place] 1.015 (1.005-1.035) Urine Protein 3+ (NEGATIVE) Urine Glucose (UA) Negative (NEGATIVE) Urine Ketones Negative (NEGATIVE) Urine Blood 1+ (NEGATIVE) Urine Nitrite Negative (NEGATIVE) Urine Bilirubin Negative (NEGATIVE) Urine Urobilinogen Normal MG/DL (0.0-1.0) Urine Leukocyte Esterase 1+ (NEGATIVE) Urine RBC 2-4 /HPF (0 - 0) Urine WBC 2-4 /HPF (0 - 0) Urine Squamous Epithelial Cells None /LPF (NONE/OCC) Urine Bacteria Few /HPF (NONE) Urine Opiates Screen Negative (NEGATIVE) Urine Barbiturates Screen Negative (NEGATIVE) Phencyclidine (PCP) Screen Negative (NEGATIVE) Urine Amphetamines Screen Negative (NEGATIVE) Urine Benzodiazepines Screen Negative (NEGATIVE) Urine Cocaine Screen Negative (NEGATIVE) Urine Marijuana (THC) Screen Negative (NEGATIVE) Other Cell Type Pathologist review Reticulocyte Count 0.7 % (0.5-2.0) Carcinoembryonic Antigen 0.4 ng/mL (0.0-4.7) Test 07/29/19 11:50 07/30/19 12:05 07/31/19 04:10 Iron Level 35 ug/dL (50-175) Total Iron Binding Capacity 170 ug/dL (250-450) Percent Iron Saturation 21 % (15-50) Unsaturated Iron Binding 135 ug/dL (112-346) Ferritin 620 NG/ML (8-388) Lactate Dehydrogenase 101 U/L (81-234) Vitamin B12 Level 1561 PG/ML (193-986) Folate 11.1 NG/ML (8.6-58.9) White Blood Count 7.0 K/UL (4.8-10.8) 7.3 K/UL (4.8-10.8) Red Blood Count 3.18 M/UL (4.70-6.10) 2.89 M/UL (4.70-6.10) Hemoglobin 10.9 G/DL (14.2-18.0) 10.0 G/DL (14.2-18.0) Hematocrit 33.7 % (42.0-52.0) 30.9 % (42.0-52.0) Mean Corpuscular Volume 106 FL (80-99) 107 FL (80-99) Mean Corpuscular Hemoglobin 34.2 PG (27.0-31.0) 34.5 PG (27.0-31.0) Mean Corpuscular Hemoglobin Concent 32.3 G/DL (32.0-36.0) 32.3 G/DL (32.0-36.0) Red Cell Distribution Width 15.6 % (11.6-14.8) 16.4 % (11.6-14.8) Platelet Count 68 K/UL (150-450) 60 K/UL (150-450) Mean Platelet Volume 8.4 FL (6.5-10.1) 9.1 FL (6.5-10.1) Neutrophils (%) (Auto) % (45.0-75.0) % (45.0-75.0) Lymphocytes (%) (Auto) % (20.0-45.0) % (20.0-45.0) Monocytes (%) (Auto) % (1.0-10.0) % (1.0-10.0) Eosinophils (%) (Auto) % (0.0-3.0) % (0.0-3.0) Basophils (%) (Auto) % (0.0-2.0) % (0.0-2.0) Differential Total Cells Counted 100 Neutrophils % (Manual) 39 % (45-75) Lymphocytes % (Manual) 26 % (20-45) Monocytes % (Manual) 34 % (1-10) Eosinophils % (Manual) 1 % (0-3) Basophils % (Manual) 0 % (0-2) Band Neutrophils 0 % (0-8) Platelet Estimate Decreased Platelet Morphology Normal Anisocytosis 1+ Macrocytosis 1+ Sodium Level 136 MMOL/L (136-145) 140 MMOL/L (136-145) Potassium Level 3.9 MMOL/L (3.5-5.1) 4.0 MMOL/L (3.5-5.1) Chloride Level 102 MMOL/L (98-107) 105 MMOL/L (98-107) Carbon Dioxide Level 25 MMOL/L (21-32) 24 MMOL/L (21-32) Anion Gap 9 mmol/L (5-15) 11 mmol/L (5-15) Blood Urea Nitrogen 16 mg/dL (7-18) 15 mg/dL (7-18) Creatinine 1.2 MG/DL (0.55-1.30) 1.2 MG/DL (0.55-1.30) Estimat Glomerular Filtration Rate mL/min (>60) mL/min (>60) Glucose Level 105 MG/DL (74-106) 109 MG/DL (74-106) Calcium Level 9.0 MG/DL (8.5-10.1) 8.8 MG/DL (8.5-10.1) Total Bilirubin 0.7 MG/DL (0.2-1.0) Aspartate Amino Transf (AST/SGOT) 11 U/L (15-37) Alanine Aminotransferase (ALT/SGPT) 16 U/L (12-78) Alkaline Phosphatase 49 U/L (46-116) Total Protein 8.9 G/DL (6.4-8.2) Albumin 2.9 G/DL (3.4-5.0) Globulin 6.0 g/dL Albumin/Globulin Ratio 0.5 (1.0-2.7) Digoxin Level 1.3 NG/ML (0.5-2.0) Troponin I 0.000 ng/mL (0.000-0.056) Height (Feet): 6 Height (Inches): 0.00 Weight (Pounds): 214 Objective Vital Signs reviewed General: well appearing, no apparent distress, alert Chest: lungs clear, no respiratory distress, ra Cardiovascular #1: normal peripheral pulses, rrr Gastrointestinal: non tender, soft, nt, nd Neurologic: alert, oriented x3 Psychiatric: mood/affect normal Darrell Hooker MD Jul 31, 2019 09:27
--- NOTE | 2019-07-31 10:30 | NUR ---
NURSE NOTES: Patient awake, resting in bed comfortably. On room air. Breathing even and unlabored. Patient kept clean and dry.
--- NOTE | 2019-07-31 12:30 | NUR ---
NURSE NOTES: Received a call from [facility], bed available, [id number]. will arrange transportation.
--- NOTE | 2019-07-31 13:00 | NUR ---
NURSE NOTES: Transportation arranged at 1500. Dr. Lehman made aware, med recon done. Patient agreed with transfer. All questions answered. Patient to call to inform of transfer.
--- NOTE | 2019-07-31 13:28 | NUR ---
NURSE NOTES: Patient reading a book in bed. Denies any pain or SOB. No acute distress noted. SR HR 70s noted on the monitoring and evaluation advisor. BP 134/77. Cardizem gtt running at 5mg/hr.
--- NOTE | 2019-07-31 14:04 | NUR ---
NURSE NOTES: called [facility] transfer center, report given to Joe. All questions answered.
[2019-07-31] MEDS ORDERED: Tubing IV Secondary IV ONE (14:34)
--- NOTE | 2019-07-31 14:45 | Cardiac Electrophysiology PN ---
Assessment/Plan Assessment/Plan 1. Recurrent palpitation and documented SVT of adenosine 6 and 12 mg. Transferred back to ICU and is on Cardizem drip. Increased metoprolol to 50 mg b.i.d. and digoxin 0.25 mg daily. Dig level 1.3 Awaiting transfer to [facility] for electrophysiology study and ablation 2. Elevated BNP of 1300. His echocardiogram showed ejection fraction of 60% and moderate MR and moderate AI and some diastolic dysfunction. 3. Chronic ITP. OKed by Dr. Seay to proceed with ablation. DW Dr Seay, Transfer [facility] Subjective Subjective In ICU again as developed SVT at rate 160-170s . Awaiting transfer to [facility] today. Objective Last 24 Hour Vital Signs Date Time Temp Pulse Resp B/P (MAP) Pulse Ox O2 Delivery O2 Flow Rate FiO2 07/31/19 14:00 78 18 126/72 (90) 100 07/31/19 13:30 72 16 134/77 (96) 100 07/31/19 13:00 71 18 135/69 (91) 100 07/31/19 12:30 75 19 131/78 (95) 100 07/31/19 12:00 73 07/31/19 12:00 Room Air 07/31/19 12:00 98.2 66 18 111/66 (81) 98 07/31/19 11:30 73 18 109/68 (82) 100 07/31/19 11:00 74 16 113/64 (80) 100 07/31/19 10:30 74 20 118/65 (82) 100 07/31/19 10:00 77 18 124/71 (88) 100 07/31/19 09:30 74 16 104/66 (79) 98 07/31/19 09:00 75 17 116/66 (83) 98 07/31/19 08:30 75 19 114/61 (78) 98 07/31/19 08:15 76 92/80 07/31/19 08:15 80 07/31/19 08:00 Room Air 07/31/19 08:00 98.4 76 17 92/80 (84) 99 07/31/19 08:00 77 07/31/19 07:30 69 18 96/52 (67) 98 07/31/19 07:20 71 16 100 Room Air 21 72 14 100 07/31/19 07:20 100 Room Air 21 07/31/19 07:00 66 17 116/70 (85) 98 07/31/19 06:00 68 17 111/62 (78) 98 07/31/19 05:00 66 17 109/59 (76) 98 07/31/19 04:21 71 108/65 07/31/19 04:00 69 07/31/19 04:00 98.3 70 17 108/65 (79) 99 07/31/19 04:00 Room Air 07/31/19 03:00 69 19 111/71 (84) 99 07/31/19 02:00 68 18 108/66 (80) 98 07/31/19 01:00 71 21 109/63 (78) 99 07/31/19 00:00 67 07/31/19 00:00 Room Air 07/31/19 00:00 98.5 71 19 110/65 (80) 99 07/30/19 23:32 68 18 99 07/30/19 23:00 66 20 103/61 (75) 99 07/30/19 22:00 68 19 97/49 (65) 98 07/30/19 21:00 75 22 115/66 (82) 99 07/30/19 20:48 80 117/67 07/30/19 20:23 99 Room Air 21 07/30/19 20:00 99.0 75 19 113/67 (82) 99 07/30/19 20:00 Room Air 07/30/19 20:00 87 07/30/19 19:23 83 110/66 07/30/19 19:00 77 22 105/62 (76) 100 07/30/19 18:00 76 18 119/74 (89) 100 07/30/19 17:00 98.2 86 23 110/67 (81) 10 07/30/19 16:00 80 16 120/68 (85) 100 07/30/19 16:00 Room Air 07/30/19 16:00 135 07/30/19 15:14 87 16 100 Room Air 21 95 15 100 07/30/19 15:00 93 16 125/70 (88) 100 Intake and Output 07/30/19 07/31/19 18:59 06:59 Intake Total 1026.25 ml 364.0 ml Output Total 1050 ml 400 ml Balance -23.75 ml -36.0 ml Intake Oral 940 ml 200 ml IV Total 86.25 ml 164.0 ml Output Urine Total 1050 ml 400 ml # Voids 2 # Bowel Movements 2 Laboratory Tests Test 07/31/19 04:10 White Blood Count 7.3 K/UL (4.8-10.8) Red Blood Count 2.89 M/UL (4.70-6.10) L Hemoglobin 10.0 G/DL (14.2-18.0) L Hematocrit 30.9 % (42.0-52.0) L Mean Corpuscular Volume 107 FL (80-99) H Mean Corpuscular Hemoglobin 34.5 PG (27.0-31.0) H Mean Corpuscular Hemoglobin Concent 32.3 G/DL (32.0-36.0) Red Cell Distribution Width 16.4 % (11.6-14.8) H Platelet Count 60 K/UL (150-450) L Mean Platelet Volume 9.1 FL (6.5-10.1) Neutrophils (%) (Auto) % (45.0-75.0) Lymphocytes (%) (Auto) % (20.0-45.0) Monocytes (%) (Auto) % (1.0-10.0) Eosinophils (%) (Auto) % (0.0-3.0) Basophils (%) (Auto) % (0.0-2.0) Differential Total Cells Counted 100 Neutrophils % (Manual) 19 % (45-75) L Lymphocytes % (Manual) 39 % (20-45) Monocytes % (Manual) 37 % (1-10) H Eosinophils % (Manual) 4 % (0-3) H Basophils % (Manual) 1 % (0-2) Band Neutrophils 0 % (0-8) Platelet Estimate Decreased L Platelet Morphology Normal Anisocytosis 1+ Macrocytosis 2+ Sodium Level 140 MMOL/L (136-145) Potassium Level 4.0 MMOL/L (3.5-5.1) Chloride Level 105 MMOL/L (98-107) Carbon Dioxide Level 24 MMOL/L (21-32) Anion Gap 11 mmol/L (5-15) Blood Urea Nitrogen 15 mg/dL (7-18) Creatinine 1.2 MG/DL (0.55-1.30) Estimat Glomerular Filtration Rate mL/min (>60) Glucose Level 109 MG/DL (74-106) H Calcium Level 8.8 MG/DL (8.5-10.1) Troponin I 0.000 ng/mL (0.000-0.056) Objective HEAD AND NECK: No JVD or carotid bruits. LUNGS: Clear. CARDIOVASCULAR: Regular S1 and S2. No gallop or murmur. ABDOMEN: Soft. EXTREMITIES: No pitting edema. Teofilo Gill MD Jul 31, 2019 14:45
--- NOTE | 2019-07-31 14:47 | NUR ---
NURSE NOTES: Patient noted with fluctuation of HR between 70s-130s. Increased Cardizem drip to 7.5 mg/hr. Dr. Gill at bedside to assess the patient. MD also made aware of transfer. No new orders at this time. at bedside.
--- NOTE | 2019-07-31 15:45 | NUR ---
NURSE NOTES: Patient resting in bed comfortably. SR-ST 70s-130s, mostly ST 120s-130s, noted on the groundwater monitoring technician. Patient is asymptomatic. BP stable 127/83. Cardizem drip increased to 15mg/hr.
--- NOTE | 2019-07-31 16:05 | NUR ---
NURSE NOTES: Patient discharged to [facility] via [facility]. Report given to KRYSTYNA Lopez. Patient in stable condition. All belongings sent with patient.
[2019-07-31] MEDS ORDERED: Sterile Water For Inj 1000ml IV ONE (16:09)
--- NOTE | 2019-07-31 18:15 | Discharge Summary ---
DATE OF ADMISSION: 07/28/2019 DATE OF DISCHARGE: 07/31/2019 SUBJECTIVE: This is an elderly male, who came to the emergency room with recurrent SVT with rapid ventricular rate. The patient was admitted in the intensive care unit, had Cardizem drip and started beta-daina, digoxin and still heart rate is in and out. The patient was suggested ablation. Patient agrees. He is going to transfer to [facility]. DISCHARGE DIAGNOSES: 1. Recurrent SVT. 2. Hypertension. 3. Degenerative arthritis. HOSPITAL COURSE: The patient has Cardiology consult. He was started on Cardizem drip, beta-daina, and digoxin. The patient was hold off on anticoagulation because his platelets are low. The patient is going to be transferred to [facility] for catheterized ablation. DIET: On 2 grams sodium diet. ACTIVITY: The patient is able to walk. Discussed with the family. Kiel Lehman M.D. DR: HERO JOB#: [id number] CC:
--- NOTE | 2019-08-01 15:31 | Cardiology Report ---
APPROVED REPORT EKG Measurement Heart [id number] Normal sinus rhythm Possible Left atrial enlargement Borderline ECG
--- NOTE | 2019-08-02 08:50 | Cardiology Report ---
APPROVED REPORT EXAM: Two-dimensional and M-mode echocardiogram with Doppler and color Doppler. INDICATION Superventriuclar Tachycardia M-Mode DIMENSIONS IVSd1.1 (0.7-1.1cm)Left Atrium (MM)4.0 (1.6-4.0cm) LVDd5.7 (3.5-5.6cm)Aortic Root3.2 (2.0-3.7cm) PWd1.0 (0.7-1.1cm)Aortic Cusp Exc.1.5 (1.5-2.0cm) LVDs3.6 (2.5-4.0cm) PWs1.6 cm Normal left ventricular chamber size, systolic function and wall motion. Left ventricular ejection fraction estimated to be 60%. No left ventricular hypertrophy. Anterior Echo-free space, may be due to pericardial fat or effusion. Left atrial size at upper limits of normal. Right atrial size at upper limits of normal. Focal aortic valve sclerosis with adequate cusp excursion. Thickened mitral valve leaflets with normal excursion. Mitral annulus and aortic root calcification. Normal pulmonic valve structure. Normal tricuspid valve structure. IVC dilated at 2.5 cm with slight physiologic collapse, suggestive of increased RA pressure. A color flow and spectral Doppler study was performed and revealed: Moderate aortic regurgitation. Moderate mitral regurgitation. Mitral diastolic velocities suggest normal left ventricular diastolic function. Mild tricuspid regurgitation. Tricuspid systolic velocities suggests peak right ventricular systolic pressure of 55 mmHg, consistent with moderate pulmonary hypertension. No pulmonic regurgitation present.
--- NOTE | 2019-08-02 09:51 | Discharge Summary ---
Discharge Summary Discharge Summary _ Addendum: -please add to discharge diagnoses ITP Gaviota Chapa NP Aug 02, 2019 09:51
== END 2019-07-31 16:10 | disposition short-term general hospital (02) | DRG 309 ==
LOC: EDBD 12:46 → EMR 13:15 → EDBEDREQ 13:23 → ICU 13:30 → EDBEDREQ 16:04 → 2E 07-30 06:15 → ICU 07-30 11:06
DX: I47.1 Supraventricular tachycardia (principal); D69.3 Immune thrombocytopenic purpura; I11.0 Hypertensive heart disease with heart failure; I95.9 Hypotension, unspecified; J20.9 Acute bronchitis, unspecified; I50.9 Heart failure, unspecified; E66.9 Obesity, unspecified; M19.90 Unspecified osteoarthritis, unspecified site; D69.6 Thrombocytopenia, unspecified; D63.8 Anemia in other chronic diseases classified elsewhere
CPT/HCPCS: 36415; 71045; 80048; 80053; 80162; 80307; 81003; 82378; 82550; 82553; 82607; 82728; 82746; 83540; 83550; 83615; 83690; 83735; 83880; 84439; 84443; 84481; 84484; 85007; 85025; 85044; 85060; 85610; 85730; 93005; 93306; 94640; 96361; 96374; 96375; 99291; J7620

== ENCOUNTER 2020-03-01 10:00 | Emergency (ER) | payer MEDICARE ==
[~2020-03-01] VITALS: Ht 183.5 cm; Wt 81.6 kg
[~2020-03-01 10:00] MED LIST: CARVEDILOL12.5 MG ORAL; HYDROCHLOROTHIA50 MG ORAL; LOSARTAN POTASS50 MG ORAL
--- NOTE | 2020-03-01 10:18 | NUR ---
ED Nurse Note: Patient walked into ED d/t being advised to come in for a bone marrow biopsy. Patient states he has felt generalized weakness for 1+ year. Patient AxO x 4, no s/s of acute distress. Patient on the freight unloader.
[2020-03-01] MEDS ORDERED: BACTRIM10 ML (10:25)
--- NOTE | 2020-03-01 10:42 | Emergency Room Report ---
History of Present Illness General Chief Complaint: Abnormal Labs Source: Patient, Medical Record Present Illness HPI Disclaimer: Please note that this report is being documented using [employer] technology. This can lead to erroneous entry secondary to incorrect interpretation by the dictating instrument. HPI: 70-year-old male history of hypertension and gout followed by Dr. Hooker presented for reported bone marrow biopsy. Patient has had chronic thrombocytopenia and has had a difficult time getting an outpatient bone marrow biopsy. He was sent for possible admission for bone marrow biopsy to rule out malignancy. Patient denies any bleeding, easy bruising, or other medical complaints at this time. Allergies: Coded Allergies: SULFAMETHOXAZOLE (Verified Allergy, Unknown, 03/01/20) TRIMETHOPRIM (Verified Allergy, Unknown, 03/01/20) COVID-19 Screening Contact w/high risk pt: No Recent Travel to affected area: No Experienced COVID-19 symptoms?: No Patient History Reviewed Nursing Documentation: PMH: Agreed; PSxH: Agreed Nursing Documentation-PMH Past Medical History: No History, Except For Hx Cardiac Problems: Yes - anemia Hx Hypertension: Yes Hx COPD: Yes Hx Cancer: No Hx Gastrointestinal Problems: No Hx Neurological Problems: No Review of Systems All Other Systems: negative except mentioned in HPI Physical Exam Vital Signs Date Time Temp Pulse Resp B/P (MAP) Pulse Ox O2 Delivery O2 Flow Rate FiO2 03/01/20 10:18 98.2 101 20 151/90 (110) 97 Room Air Sp02 EP Interpretation: reviewed, normal General Appearance: well appearing, no apparent distress Head: normocephalic, atraumatic Eyes: bilateral eye PERRL, bilateral eye EOMI ENT: hearing grossly normal, moist mucus membranes Neck: full range of motion, supple Respiratory: lungs clear, normal breath sounds, no rhonchi, no respiratory distress, no retraction, no wheezing Cardiovascular #1: normal peripheral pulses, regular rate, rhythm, no murmur Gastrointestinal: non tender, soft, non-distended, no guarding Musculoskeletal: other - Left ankle swollen mildly tender Neurologic: alert, oriented x3, no focal defects Skin: normal color, warm/dry Medical Decision Making Diagnostic Impression: Primary Impression: History of thrombocytopenia Additional Impression: History of gout ER Course Patient presented for possible bone marrow biopsy. Patient has a history of chronic thrombocytopenia. His accounts receivable analyst and oncologist sent him in for admission for bone marrow biopsy. He was concern for leukemia. I discussed the plan with the patient however he declined to stay. He did not want to be admitted to the hospital in the time of coronavirus. He requested discharge. He has a history of gout as well and was having a flare in the left ankle but stated he has medications that he has been taking at home for this issue. Low suspicion for emergent medical process. Patient stable for discharge with continued outpatient follow-up. Last Vital Signs Date Time Temp Pulse Resp B/P (MAP) Pulse Ox O2 Delivery O2 Flow Rate FiO2 03/01/20 10:18 98.2 101 20 151/90 (110) 97 Room Air Disposition: HOME, SELF-CARE Condition: Stable Referrals: NON PHYSICIAN (PCP) Freddy Anand M.D. Mar 01, 2020 10:42
--- NOTE | 2020-03-01 12:00 | NUR ---
ER DISCHARGE NOTE: Patient is cleared to be discharged per ERMD, pt is aox4, on room air, with stable vital signs. pt was given dc and prescription instructions, pt was able to verbalize understanding, pt id band and iv site removed without complications. pt is able to ambulate with steady gait. pt took all belongings.
[2020-03-04 10:25] VITALS: BP 151/90
== END 2020-03-01 12:00 | disposition home or self-care (01) ==
LOC: EMR 10:30
DX: D69.6 Thrombocytopenia, unspecified (principal); Z88.2 Allergy status to sulfonamides; Z88.8 Allergy status to other drugs, medicaments and biological substances; I10 Essential (primary) hypertension; J44.9 Chronic obstructive pulmonary disease, unspecified
CPT/HCPCS: 99281; 99282